=== PATIENT | female | born 1935 | race Caucasian/White ===

== ENCOUNTER 2019-09-02 16:23 | Inpatient (IN) ==
--- OUTSIDE RECORDS SUMMARY | 2019-09-02 16:26 | External Medical Summary | Continuity of Care Document ---
:1935 Author Name Delmy Siddiqui Address Unavailable Unavailable , Care Team Providers Name Role Phone Delmy Siddiqui Unavailable [email or web address] [email or web address], [email or web address] Unavailable Unavailable Problems Active medical history not documented Allergies and Adverse Reactions Allergy history not documented Medications Medications not documented Procedures Procedures not documented Immunizations Immunizations not documented Plan of Treatment Planned Observations Planned Goals not documented Results No Known Results Results not documented
[2019-09-02] MEDS ORDERED: ONDANSETRON INJ 2 MG/ML 2 ML VIAL IV STA ×2 (18:23→21:24)
[2019-09-02] MEDS ORDERED: SODIUM CHLORIDE 0.9% 1000ML 1,000 ML IV ONE ×2 (18:23→21:24)
[2019-09-02] MEDS ORDERED: fentaNYL citrate 100 MCG/2 ML VIAL IV STA (18:31)
--- NOTE | 2019-09-02 18:37 | Emergency Department Note ---
Impression & Plan Small bowel obstruction ED Provider Note Provider: Ammon Minaya MD DATE OF SERVICE: 09/02/2019 CHIEF COMPLAINT: Epigastric pain, vomiting HISTORY OF PRESENT ILLNESS: Patient is a 84-year-old female distant history of small bowel obstruction, prior cholecystectomy, hypertension, presenting today with the onset around 615 this morning of severe epigastric pain with some slight radiation to lower back. States that she has had nausea all day and vomited several times without blood. Denies any chest pain or shortness of breath. Denies any trauma. States she has been constipated for several days but denies any diarrhea. Denies sick contact. States this feels a little bit similar to approximately 50 years ago when she had a bowel obstruction. Pain is fairly severe at this time. Unable to keep much down today. Some tenderness over the epigastrium worsens the pain. REVIEW OF SYSTEMS: A total of 10 review of systems was obtained and negative except as stated above in the HPI. PAST MEDICAL HISTORY: As noted above MEDICATIONS: Reviewed her medication list includes 81 aspirin SOCIAL HISTORY: Patient is a smoker and lives at home PHYSICAL EXAM: GENERAL: alert and oriented laying on her side in her stretcher holding her abdomen Head: normocephalic and atraumatic EYES: No injection, discharge or icterus. ENT: Mucous membranes pink and moist. LUNGS: Airway patent. No retractions. Breath sounds clear HEART: Regular rate and rhythm. No chest wall tenderness ABDOMEN: Soft with some mild to moderate epigastric tenderness. Not peritoneal. No lower abdominal tenderness. BACK: Some slight lumbar paraspinal tenderness. No midline tenderness. SKIN: Acyanotic, warm, dry, without rashes EXTREMITIES: Without swelling, tenderness or deformity NEUROLOGICAL: No focal deficits. No aphasia. No facial droop or slurred speech. EKG: Normal sinus rhythm 87 bpm with sinus arrhythmia. No acute ST segment elevation is notable. QTC 450. No PVC. No PAC. CONTINUOUS CARDIAC MONITORING: was ordered and showed a heart rate of 90 bpm in sinus rhythm with sinus arrhythmia Patient's hypertension was referred to the hospitalist [facility] COURSE: 1824 Patient was first seen and H&P performed. 1941 patient reassessed with some improvement of pain and nausea. Advised of laboratory studies. 2115 updated the patient regarding CT finding small bowel obstruction. General surgery consulted. 2204 discussed with the [facility] hospitalist. Surgery evaluated the patient gustavo mmended conservative measures initially. Patient's laboratory studies and imaging reviewed. Differential includes Appendicitis, infections, diverticulitis, UTI, obstruction, mesenteric ischemia, aortic pathology, inflammatory bowel disease, renal colic, PUD, pancreatitis, biliary pathology, hernia, volvulus, constipation, as well as other pathologies. IMPRESSION/MEDICAL DECISION MAKING: Patient presents with severe abdominal pain and vomiting today. History of obstruction this is of concern. Also pancreatitis and hepatitis of concern. Laboratory studies to be sent. Treated medically some fentanyl and IV fluids and Zofran initially. EKG and troponin were sent to entertain ACS of the lower suspicion. Doubt this represents acute dissection or PE. Troponin is undetectable and EKG without significant changes. No baseline but creatinine of 1.48 is notable. Leukocytosis of 20.8 is notable. Hemoglobin is also elevated question reactive to her history of smoking versus may be a bit dehydrational. Left shift is notable. No evidence of LFT elevation troponin is negative. Lip ase within normal limits. CT scan consistent with small bowel obstruction with concern for to transition point in the pelvis with thickened bowel loops and surrounding inflammation with small volume ascites. No pneumatosis was noted. Discussed with surgery. NG tube ordered. Patient updated. Seen by surgery in the emergency department and conservative treatment overnight. They request a lactate level which was elevated. Additional IV fluids were ordered. Surgery to continue to follow closely and aware of this with medicine to admit. NG tube has put out some several hundred cc's of fluid - nonbloody. DIAGNOSIS: Small bowel obstruction DISPOSITION: Hospitalist will evaluate Patient was agreeable with this plan. Discussed return precautions and advised follow up. Past Med/Surg History Social History Preferred Language: Romanian Feels Safe at Home: Yes Smoking Status: Current every day smoker Allergies Allergies Allergy/AdvReac Type Severity Reaction Status Date / Time No Known Allergies Allergy Verified 09/02/19 18:49 Home Meds Home Medications Medication Instructions Recorded Confirmed aspirin [Aspir-81] 81 mg PO DAILY 09/02/19 09/02/19 cetirizine [Zyrtec] 10 mg PO DAILY 09/02/19 09/02/19 lisinopril 10 mg PO DAILY 09/02/19 09/02/19 multivitamin 1 tab PO DAILY 09/02/19 09/02/19 Results & Data (ED) Vital Signs Vital Signs - 24 hr 09/02/19 16:42 09/02/19 18:55 09/02/19 19:00 Temperature 36.3 C L Temperature Source Oral Pulse Rate 74 92 H 92 H Pulse Rate [Apical] Pulse Rhythm Regular Pulse Rhythm [Apical] Pulse Strength Normal Respiratory Rate 16 22 22 Respiratory Effort / Characteristics Non-Labored Respiratory Depth Normal Respiratory Pattern Regular Blood Pressure 201/96 H Blood Pressure [Right Arm] Blood Pressure Mean 131 Blood Pressure Mean [Right Arm] Blood Pressure Position Sitting Pulse Oximetry 95 Oxygen Delivery Method Room Air Sepsis Recent Fever Within 48 Hours No Sepsis Action Taken by Nursing No Action Required 09/02/19 19:30 09/02/19 20:00 09/02/19 20:47 Temperature Temperature Source Pulse Rate 86 85 100 H Pulse Rate [Apical] 107 H Pulse Rhythm Pulse Rhythm [Apical] Regular Pulse Strength Respiratory Rate 20 24 18 Respiratory Effort / Characteristics Respiratory Depth Respiratory Pattern Blood Pressure 173/79 H Blood Pressure [Right Arm] 173/79 H Blood Pressure Mean 103 Blood Pressure Mean [Right Arm] 110 Blood Pressure Position Pulse Oximetry 97 Oxygen Delivery Method Room Air Sepsis Recent Fever Within 48 Hours Sepsis Action Taken by Nursing 09/02/19 20:48 09/02/19 21:00 09/02/19 21:01 Temperature Temperature Source Pulse Rate 117 H 93 H 93 H Pulse Rate [Apical] Pulse Rhythm Pulse Rhythm [Apical] Pulse Strength Respiratory Rate 15 21 19 Respiratory Effort / Characteristics Respiratory Depth Respiratory Pattern Blood Pressure 189/105 H Blood Pressure [Right Arm] Blood Pressure Mean 133 Blood Pressure Mean [Right Arm] Blood Pressure Position Pulse Oximetry Oxygen Delivery Method Sepsis Recent Fever Within 48 Hours Sepsis Action Taken by Nursing 09/02/19 21:30 09/02/19 21:31 09/02/19 22:00 Temperature Temperature Source Pulse Rate 103 H 102 H 131 H Pulse Rate [Apical] Pulse Rhythm Pulse Rhythm [Apical] Pulse Strength Respiratory Rate 22 22 26 H Respiratory Effort / Characteristics Respiratory Depth Respiratory Pattern Blood Pressure 195/106 H Blood Pressure [Right Arm] Blood Pressure Mean 132 Blood Pressure Mean [Right Arm] Blood Pressure Position Pulse Oximetry Oxygen Delivery Method Sepsis Recent Fever Within 48 Hours Sepsis Action Taken by Nursing 09/02/19 22:01 09/02/19 22:30 09/02/19 22:31 Temperature Temperature Source Pulse Rate 133 H 107 H 112 H Pulse Rate [Apical] Pulse Rhythm Pulse Rhythm [Apical] Pulse Strength Respiratory Rate 22 24 22 Respiratory Effort / Characteristics Respiratory Depth Respiratory Pattern Blood Pressure 142/94 H 170/113 H Blood Pressure [Right Arm] Blood Pressure Mean 101 131 Blood Pressure Mean [Right Arm] Blood Pressure Position Pulse Oximetry Oxygen Delivery Method Sepsis Recent Fever Within 48 Hours Sepsis Action Taken by Nursing 09/02/19 23:00 09/02/19 23:01 Temperature Temperature Source Pulse Rate 92 H 91 H Pulse Rate [Apical] Pulse Rhythm Pulse Rhythm [Apical] Pulse Strength Respiratory Rate 20 20 Respiratory Effort / Characteristics Respiratory Depth Respiratory Pattern Blood Pressure 159/93 H Blood Pressure [Right Arm] Blood Pressure Mean 121 Blood Pressure Mean [Right Arm] Blood Pressure Position Pulse Oximetry Oxygen Delivery Method Sepsis Recent Fever Within 48 Hours Sepsis Action Taken by Nursing Laboratory Data Result diagrams: 09/02/19 18:55 09/02/19 18:55 Lab Results 09/02/19 09/02/19 09/02/19 Range/Units 18:55 18:55 22:36 WBC 20.88 H (4.8-10.8) K/uL RBC 6.33 H (4.2-5.4) M/uL Hgb 19.7 H (12.0-16.0) g/dL Hct 59.5 H (37-47) % MCV 94.0 (80-100) fL MCH 31.1 (25-34) pg MCHC 33.1 (32-36) g/dL RDW Std Deviation 44.8 (36.4-46.3) fL RDW Coeff of Breanna 13.1 (11.5-14.5) % Plt Count 293 (130-400) K/uL MPV 11.2 H (7.4-10.4) fL Immature Gran % (Auto) 0.2 % Neut % (Auto) 86.9 % Lymph % (Auto) 8.7 % Marinette % (Auto) 4.1 % Eos % (Auto) 0.0 % Baso % (Auto) 0.1 % Neut # (Auto) 18.12 H (1.4-6.5) K/uL Lymph # (Auto) 1.82 (1.2-3.4) K/uL Marinette # (Auto) 0.85 H (0.11-0.59) K/uL Eos # (Auto) 0.01 (0-0.5) K/uL Baso # (Auto) 0.03 (0-0.2) K/uL Immature Gran # (Auto) 0.05 H (0.00-0.02) K/uL Sodium 137 (136-145) mmol/L Potassium 3.8 (3.5-5.1) mmol/L Chloride 98 (98-107) mmol/L Carbon Dioxide 26 (21-32) mmol/L Anion Gap 13.0 H (3-11) BUN 20 H (7-18) mg/dl Creatinine 1.48 H (0.6-1.2) mg/dl Est Cr Clr Drug Dosing Not Reportable Est GFR ( Amer) 37.8 Est GFR (Non-Af Amer) 32.6 BUN/Creatinine Ratio 13.4 (10-20) Glucose 265 H (70-99) mg/dl Lactate 4.3 H* (0.4-2.0) mmol/L Calcium 11.8 H (8.5-10.1) mg/dl Total Bilirubin 1.1 H (0.2-1) mg/dl AST 20 (15-37) U/L ALT 27 (12-78) U/L Alkaline Phosphatase 130 H (45-117) U/L Troponin I < 0.015 (0-0.045) ng/ml Total Protein 9.0 H (6.4-8.2) gm/dl Albumin 4.3 (3.4-5.0) gm/dl Globulin 4.7 H (2.5-4.0) gm/dl Albumin/Globulin Ratio 0.9 (0.9-2) Lipase 93 (73-393) U/L Administered Medications Discontinued Medications Fentanyl Citrate (Fentanyl Citrate) 25 mcg IV NOW STA Stop: 09/02/19 18:32 Last Admin: 09/02/19 19:00 Dose: 25 mcg Documented by: [id number] Sodium Chloride (Nss 1000ml) 1,000 mls @ 999 mls/hr IV .Q1H1M ONE Stop: 09/02/19 19:23 Last Infusion: 09/02/19 20:26 Dose: 0 mls/hr Documented by: [id number] Admin: 09/02/19 19:01 Dose: 999 mls/hr Documented by: [id number] Sodium Chloride (Nss 1000ml) 1,000 mls @ 999 mls/hr IV .Q1H1M ONE Stop: 09/02/19 22:24 Last Admin: 09/02/19 21:36 Dose: 999 mls/hr Documented by: [id number] Ondansetron HCl (Zofran) 4 mg IV NOW STA Stop: 09/02/19 18:24 Last Admin: 09/02/19 19:00 Dose: 4 mg Documented by: [id number] Ondansetron HCl (Zofran) 4 mg IV NOW STA Stop: 09/02/19 21:25 Last Admin: 09/02/19 21:36 Dose: 4 mg Documented by: [id number] Discharge Plan Visit Data *Final* Discharge Date/Time: 09/02/19 23:53 Chief Complaint: Abdominal Pain Stated Complaint: ABD PAIN, VOMITING ED Provider: Ammon Minaya Discharge Problem: Small bowel obstruction Patient Disposition: Admitted As Inpatient Discharge Instructions Interventions: ED Discharge Assessment Last Done: 09/02/19 23:53
[2019-09-02 19:07] LABS: Basophils # (auto) 0.03 K/uL (0-0.2); Basophils % (auto) 0.1 %; Eosinophils # (auto) 0.01 K/uL (0-0.5); Hematocrit (blood only) 59.5 % (37-47); Hemoglobin 19.7 g/dL (12.0-16.0); Immature Granulocytes # (auto) 0.05 K/uL (0.00-0.02); Immature Granulocytes % (auto) 0.2 %; Lymphocytes # (auto) 1.82 K/uL (1.2-3.4); Lymphocytes % (auto) 8.7 %; Mean Corpuscular Hemoglobin 31.1 pg (25-34); Mean Platelet Volume 11.2 fL (7.4-10.4); Monocytes # (auto) 0.85 K/uL (0.11-0.59); Monocytes % (auto) 4.1 %; Neutrophils # (auto) 18.12 K/uL (1.4-6.5); Neutrophils % (auto) 86.9 %; Platelet Count 293 K/uL (130-400); RDW Coefficient of Variation 13.1 % (11.5-14.5); RDW Standard Deviation 44.8 fL (36.4-46.3); Red Blood Count 6.33 M/uL (4.2-5.4); White Blood Count 20.88 K/uL (4.8-10.8)
[2019-09-02 19:11] LABS: Mean Corpuscular Hgb Conc 33.1 g/dL (32-36)
[2019-09-02 19:24] LABS: Alanine Aminotransferase 27 U/L (12-78); Albumin Level 4.3 gm/dl (3.4-5.0); Aspartate Aminotransferase 20 U/L (15-37); BUN Creatinine Ratio 13.4 (10-20); Blood Urea Nitrogen 20 mg/dl (7-18); Calcium 11.8 mg/dl (8.5-10.1); Carbon Dioxide 26 mmol/L (21-32); Chloride 98 mmol/L (98-107); Est GFR (African American) 37.8; Est GFR (Non-African American) 32.6; Glucose 265 mg/dl (70-99); Lipase 93 U/L (73-393); Potassium 3.8 mmol/L (3.5-5.1); Sodium 137 mmol/L (136-145)
[2019-09-02 19:29] LABS: Albumin Globulin Ratio 0.9 (0.9-2); Alkaline Phosphatase 130 U/L (45-117); Bilirubin,Total 1.1 mg/dl (0.2-1); Globulin 4.7 gm/dl (2.5-4.0); Troponin I < 0.015 ng/ml (0-0.045)
--- NOTE | 2019-09-02 21:13 | CT Scan Report ---
CT SCAN OF THE ABDOMEN AND PELVIS WITHOUT IV CONTRAST CLINICAL HISTORY: Epigastric abdominal pain. Nausea and vomiting. COMPARISON STUDY: Pelvic ultrasound dated 05/21/2009. TECHNIQUE: CT scan of the abdomen and pelvis is performed from the lung bases to the proximal femora. Images are reviewed in the axial, sagittal, and coronal planes. IV contrast was not administered for this examination as per the referring clinician. Note that the examination was performed in signific antly suboptimal fashion without oral and IV contrast. A dose lowering technique was utilized adherin g to the principles of ALARA. CT DOSE: 693.14 mGy.cm FINDINGS: Lung bases: The heart is normal in size and without pericardial effusion. The lung bases are clear. T here is a moderate hiatal hernia. Liver: The unenhanced liver is cirrhotic in morphology and heterogeneous in attenuation. There is nod ularity of the hepatic surface contour. There is minimal central intrahepatic biliary ductal dilatati on. Gallbladder: Surgically absent noting clips in the gallbladder fossa. Spleen: Normal in size and attenuation. Pancreas: The unenhanced pancreas is moderately atrophic and grossly unremarkable. Adrenal glands: There is nodular thickening of the adrenal glands. Kidneys: The unenhanced kidneys demonstrate cortical atrophy and are without hydronephrosis. There is an 8 mm nonobstructing calculus in the left lower pole. No additional calculi are seen in either kid lizz. There is no evidence of contour deforming renal mass lesion. Abdominal vasculature: The abdominal aorta is normal in course and caliber noting advanced atheroscle rotic calcification. Bowel: The proximal small bowel loops are distended and fluid-filled, measuring up to 3.[address] The distal small bowel loops and colon are decompressed. 2 transition points are suggested in th e pelvis on images #246 and #262. The appearance is consistent with a small bowel obstruction. The 2 transition points raise concern for a closed loop obstruction, possibly related to an internal hernia . There are thick walled bowel loops identified in the pelvis with interloop fluid and surrounding in flammation. There is venous engorgement of the surrounding mesenteric vessels. No pneumatosis intesti nalis or portal venous gas is seen. The appendix is not visualized. Peritoneum: There is trace abdominopelvic ascites. No intraperitoneal free air is seen. A mesenteric calcification is noted in the ventral pelvis on image #296 and measures 2.2 cm. Lymphadenopathy: None. Pelvic viscera: The bladder, uterus, and adnexa are normal as visualized. Skeletal structures: The skeletal structures are osteopenic. Moderate lumbosacral spondylosis is obse rved. No lytic or blastic lesions are seen. IMPRESSION: 1. Significantly suboptimal examination without oral and IV contrast. 2. Findings are consistent with a small bowel obstruction as above. 3. There are 2 transition points suggested in the pelvis, and the appearance is concerning for a clos ed loop type obstruction. There are thick walled bowel loops in the pelvis with surrounding inflammat ion, interloop fluid, and surrounding venous engorgement. These loops are at risk and surgical consul tation is advised. 4. There is a small volume of abdominopelvic ascites. 5. No intraperitoneal free air is identified. There is no pneumatosis intestinalis or portal venous g as. 6. Cirrhotic liver morphology. 7. Left-sided nephrolithiasis. 8. Moderate hiatal hernia. 9. Additional findings as above. ACT 112: Negative or not required by law. Electronically signed by: Dewey Belle M.D. 09/02/2019 9:12 PM
--- NOTE | 2019-09-02 21:21 | XRay Report ---
SINGLE VIEW CHEST CLINICAL HISTORY: Generalized abdominal pain. FINDINGS: An AP, portable, upright chest radiograph is obtained. No prior studies are available for c omparison at the time of dictation. The examination is degraded by portable technique and patient rot ation. The heart is top normal for projection noting atherosclerotic calcification of the thoracic a keren. The pulmonary vasculature is noncongested. Atelectasis is noted at the lung bases. No airspace consolidation or large pleural effusion is identified. No pneumothorax is seen. The skeletal structur es are osteopenic. The bony thorax is grossly intact. IMPRESSION: No active disease in the chest. ACT 112: Negative or not required by law. Electronically signed by: Dewey Belle M.D. 09/02/2019 9:19 PM
--- NOTE | 2019-09-02 22:20 | Surgery Consultation ---
Date of Consultation September 02, 2019 Assessment & Plan (1) Small bowel obstruction: -SBO likely due to adhesions from prior surgery -as the pt, is in no distress will recommend the following: -admit to hospitalist service -keep NPO -hydrate with IVF -NGT to low continuous suction -analgesics and anti-emetics prn -check lactate level -follow serial labs -check KUB in am -I had a lengthy discussion with the patient and her son who was at bedside. I discussed the nature of the problem and that SBO was likely due to adhesions. We discussed a trial of non-surgical treatment as outlined above and they were in agreement. I informed them that if her clinical condition deteriorates or if conservative measures fail after a reasonable timeframe we will need to revisit surgical options. They expressed their understanding and had all questions answered. They noted that her code status is level 1 full code. Supervising Physician Co-Signing Physician Notes Imaging and labs reviewed overnight, discussed with Pk Brown and agree with above. Patient was examined this morning, see today's progress note for full details. History of Present Illness History of Present Illness 84 year old female was in her usual state of health, feeling fine until this am about 6 am she developed diffuse abdominal recinos along with N/V. She drank 3 cups of coffee but continued to have N/V. Sine this morning she has only had sips of water. She notes a hx. of tubal ligation in the 1970s, and subsequently had a SBO due to adhesions that required surgery. She has also had an appendectomy and cholecystectomy. She denies CP, SOB, fevers, shakes, chills. She notes having a BM yesterday and it was not liquid or loose. She had a colonoscopy several years ago with polypectomy. In the ED she had a CT scan that showed concern for SBO(no oral or IV) was used. Her WBC was 20k and her Cr was 1.5. She was noted to be afebrile. An NGT was placed and returned about 300 cc of dark, non-bloody liquid. She was in no distress at the time of my exam. Allergies Allergy/AdvReac Type Severity Reaction Status Date / Time No Known Allergies Allergy Verified 09/02/19 18:49 Home Medications Home Medications Medication Instructions Recorded Confirmed Type aspirin [Aspir-81] 81 mg PO DAILY 09/02/19 09/02/19 History cetirizine [Zyrtec] 10 mg PO DAILY 09/02/19 09/02/19 History lisinopril 10 mg PO DAILY 09/02/19 09/02/19 History multivitamin 1 tab PO DAILY 09/02/19 09/02/19 History Patient History Social History Preferred Language: Divehi Communication Ability: Effective Underground Utility Locator Required: No Beliefs That Will Affect Care: None Current Living Situation: Family Current Living Situation Comment: Home with Son Other Information That Helps Us Care for You: No Feels Safe at Home: Yes Safety Concerns: Feels Safe At This Time Smoking Status: Current every day smoker Tobacco Type: cigarettes ; Cigarettes Per Day: 20 ; Hx Alcohol Use: No Hx Substance Use: No Review of Systems Constitutional: + weight loss; no fever and no chills Eyes: no diplopia Ear, Nose, Mouth, Throat: no ear pain Respiratory: no cough and no dyspnea Cardiovascular: no chest pain Gastrointestinal: + abdominal pain, + nausea and + vomiting Genitourinary: no dysuria Musculoskeletal: no back pain Integumentary: no rash Neurologic: no localized weakness Physical Exam Constitutional: well developed and well nourished; no acute distress Eyes: no conjunctival abnormality ENMT: Ears: no hearing impairment oral mucosa dry Neck: trachea midline Respiratory: normal respiratory effort, lungs clear to auscultation Cardiovascular: Rate/Rhythm: regular rate and regular rhythm Vessels: dorsalis pedis pulses present and radial pulses present Gastrointestinal (Abdomen): BS are hypoactive; abdomen has minimal distention; no rebound tenderness; generalized tenderness to palpation noted. She has a well healed midline incision. No hernias or defects noted. Musculoskeletal: no calf pain Skin: no rashes, warm and dry Neurologic: moves all extremities Results & Data Vital Signs (Past 12 Hours) Vital Signs Temp Pulse Pulse Resp BP BP Pulse Ox 09/02/19 21:31 102 H 22 09/02/19 21:30 103 H 22 195/106 H 09/02/19 21:01 93 H 19 09/02/19 21:00 93 H 21 189/105 H 09/02/19 20:48 117 H 15 09/02/19 20:47 100 H 107 H 18 173/79 H 173/79 H 97 09/02/19 20:00 85 24 09/02/19 19:30 86 20 09/02/19 19:00 92 H 22 09/02/19 18:55 92 H 22 09/02/19 16:42 36.3 C L 74 16 201/96 H 95 PG Care Time/CCT Total # of Minutes Spent Total Time Spent with Patient: Total time spent is greater than 50% in coordination of care (as documented) at patient's floor/unit and/or counseling patient: Coding Level of Care Code 88531 Inpt Consult Level 5 Diagnoses Small bowel obstruction K56.609
[2019-09-02] MEDS ORDERED: MoRPHine SULFATE 2 MG/ML CARP IV PRN (22:27)
[2019-09-02] MEDS ORDERED: SODIUM CHLORIDE 0.9% 1000ML 1,000 ML IV SCH (22:30)
[2019-09-02] MEDS ORDERED: SODIUM CHLORIDE 0.9% 500 ML IV SCH (23:30)
[2019-09-03] MEDS ORDERED: ONDANSETRON INJ 2 MG/ML 2 ML VIAL IV PRN (00:32)
--- NOTE | 2019-09-03 00:39 | History and Physical Report ---
DATE OF ADMISSION: 09/02/2019 CHIEF COMPLAINT: Abdominal pain. HISTORY OF PRESENT ILLNESS: This is an 84-year-old female with past medical history significant for prediabetes, hypertension, history of small-bowel obstruction 50 years ago, who comes with abdominal pain that started today morning and progressively the pain got severe, about 10/10 in severity. Later in the afternoon, she started to have nausea and vomiting and vomited like 4-5 times. In the ER, again she vomited. Last bowel movement was yesterday which was constipated. Denies any fever, chills. No cough, no shortness of breath, no chest pain, no loss of sense of smell or taste. No headache, no blurred vision, no earache, no runny nose, no dysphagia. Normal bladder movements. Currently, she has an NG tube and she is feeling a little better. ALLERGIES: No known drug allergies. PAST MEDICAL HISTORY: As mentioned above. PAST SURGICAL HISTORY: Colonoscopy, hemorrhoidectomy, laparoscopic cholecystectomy, ligation of oviducts, tonsillectomy and adenoidectomy. MEDICATIONS: The patient is on lisinopril 10 mg p.o. daily, aspirin 81 mg p.o. daily, multivitamins with minerals 1 tablet daily. FAMILY HISTORY: No family history on file. SOCIAL HISTORY: , lives with her son. Smokes 1 pack a day. No alcohol use, no drug use. REVIEW OF SYSTEMS: As per HPI. Rest of the review of systems negative. PHYSICAL EXAMINATION: GENERAL: The patient is of moderate build, not in acute distress. VITAL SIGNS: Temperature 36.3, pulse 110, respiratory rate 22, blood pressure is 170/113, and oxygen 97% on room air. HEENT: No pallor, no icterus. Pupils equal, round, and reactive to light. NECK: No JVD, no neck masses, no carotid bruits. CARDIOVASCULAR: S1, S2 heard, regular rate and rhythm, no murmur, no gallop. RESPIRATORY SYSTEM: Normal AP diameter. No accessory muscle use. No wheezing, no crackles. ABDOMEN: Soft, bowel sounds sluggish. Diffuse mild discomfort. No guarding, no rigidity, no distention. CENTRAL NERVOUS SYSTEM: Cranial nerves II-XII grossly intact. Nonfocal. EXTREMITIES: Some petechial rash seen in the lower extremities. No edema seen. LABORATORY DATA: WBC 20.8, hemoglobin 19.7, hematocrit 59.5, platelets 293. Sodium 137, potassium 3.8, chloride 98, bicarbonate 26, BUN 20, creatinine 1.4, serum glucose 265. Lactic acid 11.8, total bilirubin 1.1, AST 20, ALT 27, alkaline phosphatase 130. Troponin I less than 0.015. Lipase 93. IMAGING: Chest x-ray, no active disease in the chest. CT of the abdomen and pelvis preliminary report consistent with small-bowel obstruction. EKG: Normal sinus rhythm with sinus arrhythmia at rate of 87, no significant change was seen. ASSESSMENT AND PLAN: This is an 84-year-old female who presents with small-bowel obstruction. 1. Small-bowel obstruction, history of obstruction in the past 50 years ago. Seen by surgery, status post NG tube. Continue with NG tube, n.p.o., IV fluids, IV antiemetics, IV pain medicine p.r.n. Monitor in the medical floor. 2. Petechial rash in lower extremities, which started about a week ago, needs to follow up. 3. Hyperglycemia, history of prediabetes. We will place on insulin sliding scale. Follow the blood sugars, follow HbA1c levels. 4. Hypercalcemia , mostly likely from dehydration.Follow repeat levels. 5. Elevated lactic acid, mostly from dehydration. We will give aggressive fluids and follow the repeat levels. 6. Acute kidney injury. Baseline creatinine of 0.9, presently with a creatinine of 1.4. Getting fluids. We will follow the repeat labs. 7. Deep venous thrombosis prophylaxis, sequential compression devices. 8. Hypertension, holding the lisinopril. As Cr improving placed on iv Vasotec prn. DISPOSITION: Admit to medical floor. Expect to discharge home and follow with family doctor. Level 1 full code. MTDD
[2019-09-03] MEDS ORDERED: CARBOHYDRATES FOR HYPOGLYCEMIA PO PRN (00:45)
[2019-09-03] MEDS ORDERED: GLUCAGON FOR INJ 1 MG VIAL IM PRN (00:45)
[2019-09-03] MEDS ORDERED: DEXTROSE 50% 50 ML SYRINGE IV PRN (00:45)
[2019-09-03] MEDS ORDERED: GLUCOSE 10 TABS/TUBE PO PRN (00:45)
[2019-09-03] MEDS ORDERED: GLUCOSE 40% GEL 15 GM TUBE PO PRN (00:45)
[2019-09-03] MEDS: INSULIN ASPART 100 UNITS/ML 3 ML PEN SC SCH ×4 (01:02→19:39)
[2019-09-03] MEDS: SODIUM CHLORIDE 0.9% 1000ML 1,000 ML IV SCH ×2 (01:16→10:46)
[2019-09-03 03:20] LABS: Basophils # (auto) 0.01 K/uL (0-0.2); Hematocrit (blood only) 52.9 % (37-47); Hemoglobin 18.1 g/dL (12.0-16.0); Immature Granulocytes # (auto) 0.08 K/uL (0.00-0.02); Immature Granulocytes % (auto) 0.4 %; Lymphocytes # (auto) 1.27 K/uL (1.2-3.4); Lymphocytes % (auto) 6.1 %; Mean Corpuscular Hemoglobin 31.5 pg (25-34); Mean Corpuscular Hgb Conc 34.2 g/dL (32-36); Mean Platelet Volume 10.9 fL (7.4-10.4); Monocytes % (auto) 3.8 %; Neutrophils # (auto) 18.64 K/uL (1.4-6.5); Neutrophils % (auto) 89.7 %; Nucleated RBC # (auto) 0.04 K/uL (0-0); Nucleated RBC % (auto) 0.2 %; Platelet Count 228 K/uL (130-400); RDW Coefficient of Variation 13.2 % (11.5-14.5); RDW Standard Deviation 44.3 fL (36.4-46.3); Red Blood Count 5.75 M/uL (4.2-5.4)
[2019-09-03 03:42] LABS: BUN Creatinine Ratio 19.4 (10-20); Calcium 9.8 mg/dl (8.5-10.1); Creatinine Clr Calc Pharmacy 37.5 ml/min; Est GFR (African American) 47.8; Est GFR (Non-African American) 41.2; Magnesium 2.2 mg/dl (1.8-2.4); Potassium 4.6 mmol/L (3.5-5.1)
[2019-09-03 06:11] LABS: Basophils # (auto) 0.01 K/uL (0-0.2); Hematocrit (blood only) 53.3 % (37-47); Hemoglobin 17.7 g/dL (12.0-16.0); Immature Granulocytes # (auto) 0.06 K/uL (0.00-0.02); Immature Granulocytes % (auto) 0.3 %; Lymphocytes % (auto) 5.5 %; Mean Corpuscular Hemoglobin 30.7 pg (25-34); Mean Corpuscular Volume 92.4 fL (80-100); Mean Platelet Volume 10.9 fL (7.4-10.4); Monocytes # (auto) 0.96 K/uL (0.11-0.59); Monocytes % (auto) 4.8 %; Neutrophils # (auto) 17.94 K/uL (1.4-6.5); Neutrophils % (auto) 89.4 %; Platelet Count 264 K/uL (130-400); RDW Coefficient of Variation 13.3 % (11.5-14.5); RDW Standard Deviation 44.5 fL (36.4-46.3); Red Blood Count 5.77 M/uL (4.2-5.4); White Blood Count 20.07 K/uL (4.8-10.8)
[2019-09-03 06:17] LABS: Mean Corpuscular Hgb Conc 33.2 g/dL (32-36)
[2019-09-03] MEDS ORDERED: SODIUM CHLORIDE 0.9% 500 ML IV SCH (06:30)
[2019-09-03] MEDS ORDERED: ENALAPRILAT 1.25 MG in DEXTROSE 5% 25 ML IV PRN (06:38)
[2019-09-03 06:47] LABS: BUN Creatinine Ratio 20.4 (10-20); Calcium 10.2 mg/dl (8.5-10.1); Creatinine Clr Calc Pharmacy 36.4 ml/min; Est GFR (African American) 45.9; Est GFR (Non-African American) 39.6; Potassium 4.5 mmol/L (3.5-5.1)
[2019-09-03 06:54] LABS: Appearance Urine Turbid (Clear); Bacteria Urine Automated Negative (Negative); Blood Urine Negative (Negative); Color Urine Dark Yellow; Epithelial Cell Urine Auto >30 /lpf (0-5); Glucose Urine UA Negative (Negative); Ketones Urine Trace (Negative); Leukocyte Esterase Urine Trace (Negative); Nitrite Urine Negative (Negative); Protein Urine 2+ (Negative); Specific Gravity Urine 1.028 (1.000-1.030); Urobilinogen Urine Negative (Negative)
[2019-09-03 06:59] LABS: Estimated Average Glucose 114 mg/dl; Hemoglobin A1C 5.6 % (4.5-5.6)
[2019-09-03 07:09] LABS: Bilirubin Urine Negative (Negative); Ictotest Urine Negative (Negative)
[2019-09-03 07:11] LABS: Calcium Oxalate Crystals Urine Present (None Prsent)
[2019-09-03 07:13] LABS: Cast Urine Automated >30 /lpf (0-5)
[2019-09-03 07:14] LABS: Mucus Urine Present (None Prsent)
[2019-09-03] MEDS ORDERED: HydrALAZINE HCL 20 MG/ML VIAL IV PRN (07:48)
--- NOTE | 2019-09-03 08:06 | Electrocardiogram Report ---
Test Reason : Blood Pressure : / mmHG Vent. Rate : 087 BPM Atrial Rate : 087 BPM P-R Int : 124 ms QRS Dur : 086 ms QT Int : 374 ms P-R-T Axes : 016 046 038 degrees QTc Int : 450 ms Normal sinus rhythm with sinus arrhythmia Left atrial enlargement Poor R wave progression, consider anterior NC vs. lead placement vs. LVH Abnormal ECG When compared with ECG of 02-JAN-2015 23:28, No significant change was found Confirmed by Liu Gibson ([id number]) on 09/03/2019 8:05:45 AM Referred By: REFERRED SELF Confirmed By:Liu Gibson
[2019-09-03 08:08] LABS: Phosphorus 4.6 mg/dl (2.5-4.9); Thyroid Stimulating Hormone 0.71 uIu/ml (0.300-4.500)
--- NOTE | 2019-09-03 08:14 | XRay Report ---
XR KUB/Abdomen 1 view CLINICAL HISTORY: SBO pain COMPARISON STUDY: 09/02/2019 FINDINGS: Several air-filled loops of small bowel left abdomen. No significant colonic distention. Lower pole left-sided nephrocalcinosis. Nasogastric tube within the mid stomach. IMPRESSION: 1. Lower pole left renal nephrocalcinosis. 2. Mild nonobstructive ileus. ACT 112: Negative or not required by law. The above report was generated using voice recognition software. It may contain grammatical, syntax or spelling errors. Electronically signed by: Luís Pritchard M.D. 09/03/2019 8:12 AM
--- NOTE | 2019-09-03 08:58 | Surgery Progress Note ---
Date of Service September 03, 2019 Assessment & Plan (1) Small bowel obstruction: Patient here with small bowel obstruction WBC 20, same as yesterday Lactate normalized, 1.2 KUB this AM shows nonobstructive ileus Clinically feeling better since admission, but still with some lower abdominal discomfort Recommend continuing conservative management with NGT and bowel rest while awaiting return of bowel function No plans for surgical intervention at this time Pt seen and examined with Dr. Gomez Supervising Physician Co-Signing Physician Notes Patient seen and examined on morning rounds, labs and imaging reviewed, agree with above. 84-year-old female with prior surgical history presented with sudden onset of mid abdominal pain with nausea and vomiting. She has a history of a bowel obstruction status post lysis of adhesions in the 1970s. She came to the emergency department yesterday evening and a CT scan without oral or IV contrast noted small bowel obstruction with 2 possible transitions points, that could be interpreted as a possible closed-loop obstruction or internal hernia. She did have an elevated white blood cell count but also appeared to be in a prerenal azotemia with an elevated hematocrit and hemoglobin as well as an elevated creatinine. Her lactate was initially 4 but down trended to 1.2 overnight. I discussed the case with Pk hogue PA who examined the patient, and based on her abdominal exam and findings, we agreed for conservative management. This morning she is feeling better. She did have an NG tube placed overnight and it is irritating the back of her throat. Her a bdominal pain has improved but there is still some lower abdominal achiness. She has not passed gas or had a bowel movement yet. She did have a KUB this morning which showed an ileus with some gas in the colon. On exam she is afebrile with a mild tachycardia but stable vitals. Her abdomen is soft, moderately distended, minimally tender to palpation with no guarding or rebound. KUB was reviewed as above. Labs show persistent leukocytosis of 20, downtrending creatinine, and normal lactate. At this point patient appears to have a small bowel obstruction, and I have a low concern for a closed-loop obstruction Continue with conservative management, NG tube to low intermittent wall suction, may clamp to ambulate Repeat KUB and labs in the morning Surgery will continue to follow Subjective Pt states her pain is overall improved. Does have some ongoing "soreness" across mid and lower abdomen. Had a bout of emesis earlier this AM, but denies nausea currently. No gas or BM yet. Physical Exam Physical Exam: awake/alert Gastrointestinal (Abdomen): Inspection/Auscultation: + abdominal surgical scar Percussion/Palpation: + abdomen tender (mild ttp across lower abodmen) and abdomen soft NGT with brown output Results & Data Vital Signs (Past 12 Hours) Vital Signs Temp Pulse Pulse Resp BP BP BP 09/03/19 07:39 36.8 C 103 H 20 134/72 09/03/19 01:28 174/83 H 09/03/19 01:17 105 H 149/86 H 09/03/19 00:33 36.5 C 15 09/02/19 23:31 88 22 09/02/19 23:30 86 24 162/74 H 09/02/19 23:01 91 H 20 09/02/19 23:00 92 H 20 159/93 H 09/02/19 22:31 112 H 22 09/02/19 22:30 107 H 24 170/113 H 09/02/19 22:01 133 H 22 142/94 H 09/02/19 22:00 131 H 26 H 09/02/19 21:31 102 H 22 09/02/19 21:30 103 H 22 195/106 H 09/02/19 21:01 93 H 19 09/02/19 21:00 93 H 21 189/105 H Pulse Ox 09/03/19 07:39 93 09/03/19 01:28 09/03/19 01:17 09/03/19 00:33 91 09/02/19 23:31 09/02/19 23:30 09/02/19 23:01 09/02/19 23:00 09/02/19 22:31 09/02/19 22:30 09/02/19 22:01 09/02/19 22:00 09/02/19 21:31 09/02/19 21:30 09/02/19 21:01 09/02/19 21:00 PG Care Time/CCT Total # of Minutes Spent Total Time Spent with Patient: Total time spent is greater than 50% in coordination of care (as documented) at patient's floor/unit and/or counseling patient: Coding Level of Care Code 52948 Subseq Hosp Care Lvl 1 Diagnoses Small bowel obstruction K56.609
[2019-09-03] MEDS: D5W AND 1/2NSS 1,000 ML IV SCH (11:22)
--- NOTE | 2019-09-03 11:38 | Hospitalist Progress Note ---
Date of Service September 03, 2019 Assessment & Plan (1) Small bowel obstruction: This is an 84-year-old female who presents with small-bowel obstruction. -continue NG tube suctioning -on IV fluids -prn pain medications and antiemetics -general surgery following the patient Leukocytosis -admission WBC of 20,000 unchanged Elevated Lactic acid, on admission -resolved with IV fluids Hypercalcemia possible hyperparathyroidism -could be from dehydration -but elevated PTH with normal vitamin D suggest Hyperparathyroidism -the serum calcium levels so far mildly elevated above reference range of normal, continue to monitor -normal TSH Acute kidney injury -Baseline creatinine of 0.9, but admitted with a creatinine of 1.4. -monitor creatinine while on IV fluids Hypertension -blood pressure controlled while off GARCÍA inhibitor for now Hyperglycemia on admission Prediabetes -admission glucose 265, has downtrended -HbA1c 5.6 -sliding scale insulin as needed especially while on D5 1/2 normal fluids for hydration and calories while NPO with NG tube Petechial rash in lower extremities -which started about a week ago, monitor, no pruritus Deep venous thrombosis prophylaxis, sequential compression devices. Admission and Anticipated Discharge Date Admission Date: September 02, 2019 Subjective has NG tube draining bilious fluid. patient reports abdomen pain getting better. no chest pain. no shortness of breath. on room air. no chest pain. no palpitations. no dizziness. no headache Review of Systems Review of Systems: All systems reviewed & are unremarkable except as noted in Subjective Physical Exam Constitutional: cooperative Eyes: PERRL, conjunctivae normal, anicteric sclerae EOM intact bilaterally ENMT: has NG tube draining bilious fluid Neck: trachea midline, no thyromegaly Respiratory: normal respiratory effort, lungs clear to auscultation Cardiovascular: Rate/Rhythm: regular rate Gastrointestinal (Abdomen): Percussion/Palpation: abdomen soft Musculoskeletal: Head/Neck/Chest: normocephalic and head atraumatic Neurologic: PERRL, EOMI, accommodation nl, no face palsy, no dysarthria CN's II-XI intact bilaterally Psychiatric: A+Ox3, euthymic affect Results & Data Results & Data ([facility]) Vital Signs (Past 12 Hours) Vital Signs Temp Pulse Resp BP BP Pulse Ox 09/03/19 07:39 36.8 C 103 H 20 134/72 93 09/03/19 01:28 174/83 H 09/03/19 01:17 105 H 149/86 H 09/03/19 00:33 36.5 C 15 91
[2019-09-03] MEDS ORDERED: SODIUM CHLORIDE 0.9% 1000ML 250 ML IV ONE (14:41)
[2019-09-04] MEDS: INSULIN ASPART 100 UNITS/ML 3 ML PEN SC SCH ×5 (00:36→18:38)
[2019-09-04] MEDS: D5W AND 1/2NSS 1,000 ML IV SCH (02:38)
[2019-09-04 06:10] LABS: Basophils # (auto) 0.02 K/uL (0-0.2); Basophils % (auto) 0.1 %; Eosinophils # (auto) 0.01 K/uL (0-0.5); Hematocrit (blood only) 50.1 % (37-47); Hemoglobin 16.2 g/dL (12.0-16.0); Immature Granulocytes # (auto) 0.06 K/uL (0.00-0.02); Immature Granulocytes % (auto) 0.3 %; Lymphocytes # (auto) 1.89 K/uL (1.2-3.4); Lymphocytes % (auto) 9.2 %; Mean Corpuscular Hemoglobin 30.7 pg (25-34); Mean Corpuscular Hgb Conc 32.3 g/dL (32-36); Mean Corpuscular Volume 94.9 fL (80-100); Mean Platelet Volume 11.5 fL (7.4-10.4); Monocytes % (auto) 8.8 %; Neutrophils # (auto) 16.72 K/uL (1.4-6.5); Neutrophils % (auto) 81.6 %; Platelet Count 233 K/uL (130-400); RDW Coefficient of Variation 13.7 % (11.5-14.5); RDW Standard Deviation 47.3 fL (36.4-46.3); Red Blood Count 5.28 M/uL (4.2-5.4)
[2019-09-04 06:46] LABS: Albumin Globulin Ratio 0.9 (0.9-2); Albumin Level 2.9 gm/dl (3.4-5.0); Calcium 10.1 mg/dl (8.5-10.1); Creatinine Clr Calc Pharmacy 36.9 ml/min; Est GFR (African American) 46.8; Est GFR (Non-African American) 40.4; Globulin 3.3 gm/dl (2.5-4.0); Potassium 3.5 mmol/L (3.5-5.1); Total Protein 6.2 gm/dl (6.4-8.2)
[2019-09-04 06:53] LABS: Bilirubin,Total 1.4 mg/dl (0.2-1)
[2019-09-04 07:37] LABS: Base Excess ABG 19.2 mEq/L (-9-1.8); HCO3 ABG 47 mmol/L (19-24); Oxygen Saturation ABG 95.7 % (90-95); PCO2 ABG 63 mmHg (35-46); PO2 ABG 77 mmHg (80-95); pH ABG 7.49 (7.35-7.45)
[2019-09-04 07:43] LABS: Allen Test Pos (Pos)
--- NOTE | 2019-09-04 08:10 | XRay Report ---
KUB CLINICAL HISTORY: Small bowel obstruction. FINDINGS: An AP, portable, supine abdominal radiograph is compared to study dated 09/03/2019 and corre lated with abdominal CT dated 09/02/2019. An enteric tube is unchanged in position and projects over t he stomach. Cholecystectomy clips are noted. There is evidence of persistent small bowel obstruction. Small bowel loops measure up to 5.3 cm. No evidence of intraperitoneal free air is seen on this supi ne image. A mesenteric calcification is again noted in the pelvis. The skeletal structures are osteop enic and appear intact. IMPRESSION: Persistent small bowel obstruction. Gaseous distention appears modestly increased from . Electronically signed by: Dewey Belle M.D. 09/04/2019 8:08 AM
--- NOTE | 2019-09-04 09:18 | Surgery Progress Note ---
Date of Service September 04, 2019 Assessment & Plan (1) Small bowel obstruction: not improving WBC remains 20, XR with persistent SB dilation and high NG output discussed options of continued observation, obtaining SBFT, or surgery for laparoscopy/laparotomy given her continued symptoms and lack of progress, she wishes to proceed to OR and we will plan for this afternoon Supervising Physician Co-Signing Physician Notes Patient seen and examined, labs and imaging reviewed, agree with above. 84-year-old female with prior abdominal surgery presented with small bowel obstruction and some concern for closed-loop obstruction. She did well yesterday, but persist with some abdominal cramping. She has high NG tube output. She has not passed any flatus. On exam she is distended and mildly tender to palpation without guarding or rebound. WBC still 20 K, KUB with persistent small bowel obstruction. We discussed her options to include continued observation, small bowel follow-through, or surgery. At this point we agreed that surgery was the best course of action. Plan for diagnostic laparoscopy, possible laparotomy, possible bowel resection later today The risk of the procedure were discussed to include but not limited to bleeding, infection, recurrence, ostomy, damage surrounding structures, need for future more extensive surgery, prolonged ileus, and the risk of anesthesia Preop antibiotics Patient may need TPN postoperatively The diagnosis, details the procedure and recovery, and plan of care discussed with the patient, all questions were answered, the patient expressed understanding agrees the plan of care as stated Subjective no flatus, pain about the same Physical Exam Gastrointestinal (Abdomen): Inspection/Auscultation: + abdomen distended Percussion/Palpation: + abdomen tender (mild) and abdomen soft NG 900 cc per shift Results & Data Vital Signs (Past 12 Hours) Vital Signs Temp Pulse Resp BP BP Pulse Ox 09/04/19 07:34 36.4 C L 78 17 120/77 94 09/04/19 00:01 91 09/03/19 23:23 36.9 C 91 H 16 128/74 84 L PG Care Time/CCT Total # of Minutes Spent Total Time Spent with Patient: Total time spent is greater than 50% in coordination of care (as documented) at patient's floor/unit and/or counseling patient: Coding Level of Care Code 98028 Inpt Consult Level 1 Diagnoses Small bowel obstruction K56.609
--- NOTE | 2019-09-04 09:52 | Hospitalist Progress Note ---
Date of Service delayed entry September 04, 2019 Assessment & Plan (1) Small bowel obstruction: SBO likely due to peritoneal adhesions This is an 84-year-old female who presents with small-bowel obstruction. -General surgery is to proceed with exploratory laparotomy today Preoperative evaluation: Patient moderate risk for cardiopulmonary complications, no contraindication to proceed with planned surgery Leukocytosis -Afebrile -admission WBC of 20,000 unchanged -Urine cultures negative so far Elevated Lactic acid, on admission -resolved with IV fluids Hypercalcemia possible hyperparathyroidism -could be from dehydration -but elevated PTH with normal vitamin D suggest Hyperparathyroidism -normal TSH --Improving Acute kidney injury -Baseline creatinine of 0.9, but admitted with a creatinine of 1.4. -Improved to 1.2 Hypertension -blood pressure controlled while off GARCÍA inhibitor -Monitor BP Hyperglycemia on admission Prediabetes -admission glucose 265, has downtrended -HbA1c 5.6 -sliding scale insulin as needed Petechial rash in lower extremities -which started about a week ago -No rash noted Deep venous thrombosis prophylaxis, sequential compression devices. Admission and Anticipated Discharge Date Admission Date: September 02, 2019 Subjective Follow-up for small bowel obstruction Seen resting in bed, comfortable, not in distress Still reports mild abdominal discomfort, and nausea No chest pain, shortness of breath, palpitations, dizziness States she can walk up to 5 steps at home with no problems Also can do grocery shopping with no unusual shortness of breath or chest pain No other symptoms Review of Systems Review of Systems: All systems reviewed & are unremarkable except as noted in HPI & below Physical Exam Physical Exam: General- oriented x 3, not in distress, speaks in sentences with no effort or accessory muscle use Head- atraumatic Eyes- PERRL, EOMI, anicteric ENT- oropharynx clear NG tube in place with brown output Neck- supple, no JVD, no adenopathy, no thyromegaly; carotids +2/2, no bruits appreciated Lungs- clear to auscultation bilaterally, no rales/wheezes Heart- normal rate, regular rhythm; no murmur, no gallop, no rub appreciated Abdomen-hypoactive bowel sounds, nondistended, soft, nontender, no masses or hepatosplenomegaly Extremities- no pretibial edema, no calf tenderness; peripheral pulses intact Neuro- alert, oriented x 3; CN 2-12 grossly intact; motor 5/5 bilaterally;sensation 100% on all extremities; no other gross focal neurologic deficits Skin- warm & dry Results & Data Results & Data ([facility]) Vital Signs (Past 12 Hours) Vital Signs Temp Pulse Resp BP BP Pulse Ox 09/04/19 07:34 36.4 C L 78 17 120/77 94 09/04/19 00:01 91 09/03/19 23:23 36.9 C 91 H 16 128/74 84 L Laboratory Results All noted and reviewed
--- NOTE | 2019-09-04 10:33 | XRay Report ---
XR chest 1V portable CLINICAL HISTORY: Hypoxia. COMPARISON STUDY: Chest radiograph September 02, 2019. FINDINGS: Tip of nasogastric tube is below the lower aspect of this image but at least within the pro ximal stomach. There is no pneumothorax. Trace left pleural effusion is noted. There are mild bibasil ar opacities. These favor atelectasis. IMPRESSION: 1. Mild bibasilar opacities that favor atelectasis. 2. Trace left pleural effusion. ACT 112: Negative or not required by law. Electronically signed by: Ten Wilkerson M.D. 09/04/2019 10:31 AM
--- NOTE | 2019-09-04 13:22 | Anesthesiology Consultation ---
Date of Service September 04, 2019 History Surgery Operation Date: 09/04/19 08:20 Proposed Procedures p Diagnostic Laparoscopy, Possible Laparotomy with Bowel Resection - Denver Gomez, , FACS Height/Weight Height: 5 ft 6 in Weight: 78.3 kg Allergies Allergy/AdvReac Type Severity Reaction Status Date / Time No Known Allergies Allergy Verified 09/02/19 18:49 Medications Home Medications Medication Instructions Recorded Confirmed Last Taken aspirin [Aspir-81] 81 mg PO DAILY 09/02/19 09/02/19 09/02/19 cetirizine [Zyrtec] 10 mg PO DAILY 09/02/19 09/02/19 09/02/19 lisinopril 10 mg PO DAILY 09/02/19 09/02/19 09/02/19 multivitamin 1 tab PO DAILY 09/02/19 09/02/19 09/02/19 Active Medications Generic Name Dose Route Start Last Admin Trade Name Freq PRN Reason Stop Dose Admin Dextrose/Sodium Chloride 1,000 mls @ 60 mls/hr 09/03/19 11:00 09/04/19 02:38 D5w And 1/2nss IV 10/03/19 10:59 60 mls/hr .[id number] YISEL Administration Insulin Aspart 0 units 09/03/19 00:45 09/04/19 13:01 Novolog Flexpen SC 10/03/19 00:44 Not Given Q6 YISEL Ondansetron HCl 4 mg 09/03/19 00:32 09/03/19 13:02 Zofran IV 10/03/19 00:31 4 mg Q6H PRN Administration Nausea NPO Date Last Intake of Fluids: 09/04/19 Time Last Intake of Fluids: 12:00 Date Last Intake of Solids: 09/01/19 Social History Smoking Status: Current every day smoker tobacco type: cigarettes Smoking cigarettes per day: 20 Hx Alcohol Use: No Hx Substance Use: No Physical Exam Vital Signs Last Vital Signs Temp 36.7 C 09/04/19 13:01 Pulse 89 09/04/19 13:01 Resp 18 09/04/19 13:01 BP 104/86 09/04/19 13:01 Pulse Ox 98 09/04/19 13:01 Testing Laboratory Results 09/04/19 05:03 09/04/19 05:03 Hemoglobin A1c 5.6 % (4.5-5.6) 09/03/19 03:07 Urine Color Dark Yellow 09/03/19 06:20 Urine Appearance Turbid (Clear) A 09/03/19 06:20 Urine pH 5.0 (4.5-7.5) 09/03/19 06:20 Ur Specific [place] 1.028 (1.000-1.030) 09/03/19 06:20 Urine Protein 2+ (Negative) H 09/03/19 06:20 Urine Glucose (UA) Negative (Negative) 09/03/19 06:20 Urine Ketones Trace (Negative) H 09/03/19 06:20 Urine Nitrite Negative (Negative) 09/03/19 06:20 Ur Leukocyte Esterase Trace (Negative) H 09/03/19 06:20 Urine WBC (Auto) 10-30 /hpf (0-5) H 09/03/19 06:20 Urine RBC (Auto) 5-10 /hpf (0-4) H 09/03/19 06:20 U Hyaline Cast (Auto) >30 /lpf (0-5) H 09/03/19 06:20 U Epithel Cells (Auto) >30 /lpf (0-5) H 09/03/19 06:20 Urine Bacteria (Auto) Negative (Negative) 09/03/19 06:20 09/04/19 09/04/19 12:09 05:46 POC Glucose 122 H 126 H
--- NOTE | 2019-09-04 13:24 | Anesthesiology Consultation ---
Date of Service September 04, 2019 Assessment & Plan (1) Small bowel obstruction: (2) Bleeding hemorrhoids: (3) Hyperglycemia: (4) Hypokalemia: History Surgery Operation Date: 09/04/19 08:20 Proposed Procedures p Diagnostic Laparoscopy, Possible Laparotomy with Bowel Resection - Denver Gomez DO, FACS Height/Weight Height: 5 ft 6 in Weight: 78.3 kg Allergies Allergy/AdvReac Type Severity Reaction Status Date / Time No Known Allergies Allergy Verified 09/02/19 18:49 Medications Home Medications Medication Instructions Recorded Confirmed Last Taken aspirin [Aspir-81] 81 mg PO DAILY 09/02/19 09/02/19 09/02/19 cetirizine [Zyrtec] 10 mg PO DAILY 09/02/19 09/02/19 09/02/19 lisinopril 10 mg PO DAILY 09/02/19 09/02/19 09/02/19 multivitamin 1 tab PO DAILY 09/02/19 09/02/19 09/02/19 Active Medications Generic Name Dose Route Start Last Admin Trade Name Freq PRN Reason Stop Dose Admin Dextrose/Sodium Chloride 1,000 mls @ 60 mls/hr 09/03/19 11:00 09/04/19 02:38 D5w And 1/2nss IV 10/03/19 10:59 60 mls/hr .[id number] YISEL Administration Insulin Aspart 0 units 09/03/19 00:45 09/04/19 13:01 Novolog Flexpen SC 10/03/19 00:44 Not Given Q6 YISEL Ondansetron HCl 4 mg 09/03/19 00:32 09/03/19 13:02 Zofran IV 10/03/19 00:31 4 mg Q6H PRN Administration Nausea NPO Date Last Intake of Fluids: 09/04/19 Time Last Intake of Fluids: 12:00 Date Last Intake of Solids: 09/01/19 Past Medical History Medical History (Updated 09/04/19 @ 13:24 by Prisca Simon MD) Bleeding hemorrhoids Social History Smoking Status: Current every day smoker tobacco type: cigarettes Smoking cigarettes per day: 20 Hx Alcohol Use: No Hx Substance Use: No Physical Exam Vital Signs Last Vital Signs Temp 36.7 C 09/04/19 13:01 Pulse 89 09/04/19 13:01 Resp 18 09/04/19 13:01 BP 104/86 09/04/19 13:01 Pulse Ox 98 09/04/19 13:01 Testing Laboratory Results 09/04/19 05:03 09/04/19 05:03 Hemoglobin A1c 5.6 % (4.5-5.6) 09/03/19 03:07 Urine Color Dark Yellow 09/03/19 06:20 Urine Appearance Turbid (Clear) A 09/03/19 06:20 Urine pH 5.0 (4.5-7.5) 09/03/19 06:20 Ur Specific [place] 1.028 (1.000-1.030) 09/03/19 06:20 Urine Protein 2+ (Negative) H 09/03/19 06:20 Urine Glucose (UA) Negative (Negative) 09/03/19 06:20 Urine Ketones Trace (Negative) H 09/03/19 06:20 Urine Nitrite Negative (Negative) 09/03/19 06:20 Ur Leukocyte Esterase Trace (Negative) H 09/03/19 06:20 Urine WBC (Auto) 10-30 /hpf (0-5) H 09/03/19 06:20 Urine RBC (Auto) 5-10 /hpf (0-4) H 09/03/19 06:20 U Hyaline Cast (Auto) >30 /lpf (0-5) H 09/03/19 06:20 U Epithel Cells (Auto) >30 /lpf (0-5) H 09/03/19 06:20 Urine Bacteria (Auto) Negative (Negative) 09/03/19 06:20 09/04/19 09/04/19 12:09 05:46 POC Glucose 122 H 126 H
--- NOTE | 2019-09-04 13:28 | Anesthesiology Consultation ---
Date of Service September 04, 2019 Assessment & Plan (1) Encounter for pre-operative examination: History Surgery Operation Date: 09/04/19 08:20 Proposed Procedures p Diagnostic Laparoscopy, Possible Laparotomy with Bowel Resection - Denver Gomez DO, FACS Height/Weight Height: 5 ft 6 in Weight: 78.3 kg Allergies Allergy/AdvReac Type Severity Reaction Status Date / Time No Known Allergies Allergy Verified 09/02/19 18:49 Medications Home Medications Medication Instructions Recorded Confirmed Last Taken aspirin [Aspir-81] 81 mg PO DAILY 09/02/19 09/02/19 09/02/19 cetirizine [Zyrtec] 10 mg PO DAILY 09/02/19 09/02/19 09/02/19 lisinopril 10 mg PO DAILY 09/02/19 09/02/19 09/02/19 multivitamin 1 tab PO DAILY 09/02/19 09/02/19 09/02/19 Active Medications Generic Name Dose Route Start Last Admin Trade Name Freq PRN Reason Stop Dose Admin Dextrose/Sodium Chloride 1,000 mls @ 60 mls/hr 09/03/19 11:00 09/04/19 02:38 D5w And 1/2nss IV 10/03/19 10:59 60 mls/hr .[id number] YISEL Administration Insulin Aspart 0 units 09/03/19 00:45 09/04/19 13:01 Novolog Flexpen SC 10/03/19 00:44 Not Given Q6 YISEL Ondansetron HCl 4 mg 09/03/19 00:32 09/03/19 13:02 Zofran IV 10/03/19 00:31 4 mg Q6H PRN Administration Nausea NPO Date Last Intake of Fluids: 09/04/19 Time Last Intake of Fluids: 12:00 Date Last Intake of Solids: 09/01/19 Past Medical History Medical History (Updated 09/04/19 @ 13:35 by Prisca Simon MD) Acute kidney injury Bleeding hemorrhoids (Inactive) Hypercalcemia Hypertension Hypokalemia (Inactive) Prediabetes Small bowel obstruction (Inactive) Past Surgical History Surgical History (Updated 09/04/19 @ 13:32 by Prisca Simon MD) Hx laparoscopic cholecystectomy S/P tonsillectomy and adenoidectomy Social History Smoking Status: Current every day smoker tobacco type: cigarettes Smoking cigarettes per day: 20 Hx Alcohol Use: No Hx Substance Use: No Physical Exam Vital Signs Last Vital Signs Temp 36.7 C 09/04/19 13:01 Pulse 89 09/04/19 13:01 Resp 18 09/04/19 13:01 BP 104/86 09/04/19 13:01 Pulse Ox 98 09/04/19 13:01 Testing Laboratory Results 09/04/19 05:03 09/04/19 05:03 Hemoglobin A1c 5.6 % (4.5-5.6) 09/03/19 03:07 Urine Color Dark Yellow 09/03/19 06:20 Urine Appearance Turbid (Clear) A 09/03/19 06:20 Urine pH 5.0 (4.5-7.5) 09/03/19 06:20 Ur Specific [place] 1.028 (1.000-1.030) 09/03/19 06:20 Urine Protein 2+ (Negative) H 09/03/19 06:20 Urine Glucose (UA) Negative (Negative) 09/03/19 06:20 Urine Ketones Trace (Negative) H 09/03/19 06:20 Urine Nitrite Negative (Negative) 09/03/19 06:20 Ur Leukocyte Esterase Trace (Negative) H 09/03/19 06:20 Urine WBC (Auto) 10-30 /hpf (0-5) H 09/03/19 06:20 Urine RBC (Auto) 5-10 /hpf (0-4) H 09/03/19 06:20 U Hyaline Cast (Auto) >30 /lpf (0-5) H 09/03/19 06:20 U Epithel Cells (Auto) >30 /lpf (0-5) H 09/03/19 06:20 Urine Bacteria (Auto) Negative (Negative) 09/03/19 06:20 09/04/19 09/04/19 12:09 05:46 POC Glucose 122 H 126 H Electrocardiogram Date: 09/02/19 Normal sinus rhythm with sinus arrhythmia Left atrial enlargement Poor R wave progression, consider anterior OR vs. lead placement vs. LVH Abnormal ECG When compared with ECG of 02-JAN-2015 23:28, No significant change was found Confirmed by Liu Gibson ([id number]) on 09/03/2019 8:05:45 AM Chest X-Ray Date: 09/04/19 IMPRESSION: 1. Mild bibasilar opacities that favor atelectasis. 2. Trace left pleural effusion.
[2019-09-04] MEDS ORDERED: BUPIVACAINE/EPINEPHRINE 0.25% 1:200,000 30 ML VIAL ONE (13:29)
[2019-09-04] MEDS ORDERED: ePHEDrine sulfate 50 MG/ML AMP IV PRN ×2 (13:36→13:53)
[2019-09-04] MEDS ORDERED: HYDROmorphone INJ 1 MG/ML SYRINGE IV PRN ×2 (13:36→13:53)
[2019-09-04] MEDS ORDERED: fentaNYL citrate 100 MCG/2 ML VIAL IV PRN ×2 (13:36→13:53)
[2019-09-04] MEDS ORDERED: ATROPINE SULFATE 0.1 MG/ML 10ML SYR IV PRN ×2 (13:36→13:53)
[2019-09-04] MEDS ORDERED: ONDANSETRON INJ 2 MG/ML 2 ML VIAL IV PRN ×2 (13:36→13:53)
[2019-09-04] MEDS ORDERED: fentaNYL citrate 100 MCG/2 ML VIAL ONE (13:39)
[2019-09-04] MEDS ORDERED: LIDOCAINE HCL 2% 2 ML VIAL/AMP(20MG/ML) INFIL ONE (13:39)
[2019-09-04] MEDS ORDERED: PROPOFOL IV EMULSION 10 MG/ML 20 ML VIAL IV ONE (13:39)
[2019-09-04] MEDS ORDERED: ROCURONIUM BROMIDE 10 MG/ML 5 ML VIAL IV ONE (13:39)
[2019-09-04] MEDS ORDERED: SUCCINYLCHOLINE 100MG/5ML SYR IV ONE (14:08)
[2019-09-04] MEDS ORDERED: ALBUTEROL HFA INHALER 8.5 GM ONE (14:23)
[2019-09-04] MEDS ORDERED: CEFAZOLIN 250 MG/ML 1 GM VIAL ONE (14:45)
[2019-09-04] MEDS ORDERED: DEXAMETHASONE SOD INJ 4 MG/ML VIAL ONE (14:55)
[2019-09-04] MEDS ORDERED: GLYCOPYRROLATE 0.2 MG/ML VIAL ONE (14:55)
[2019-09-04] MEDS ORDERED: NEOSTIGMINE METHYLSULFATE 5 MG/5 ML SYR ONE (14:55)
[2019-09-04] MEDS ORDERED: ONDANSETRON INJ 2 MG/ML 2 ML VIAL ONE (14:55)
[2019-09-04] MEDS ORDERED: BUPIVACAINE 0.5 % 5 MG/1 ML PF 10ML VIAL ONE (14:59)
--- NOTE | 2019-09-04 15:35 | Operative Report ---
PG Post Operative Report Pre & Post Diagnosis Operation Date: 09/04/19 08:20 Preoperative diagnosis: Small bowel obstruction Postoperative diagnosis: Small bowel obstruction secondary to adhesions and internal hernia I identified the patient and participated in the time-out.: Yes Procedure Operation Date: 09/04/19 08:20 Actual Procedures p Diagnostic Laparoscopy, Lysis of Adhesions (Not Applicable) - Denver Gomez DO, FEI Surgeon Denver Gomez DO, FEI [employer] Support Operations Operator Davis Almeida Estimated Blood Loss 5 Findings Consistent with Post-Op Diagnosis Omental adhesions to abdominal wall taken down with harmonic. Loop of dilated and friable bowel identified. Single band creating an internal hernia defect resulting in a closed-loop obstruction. Band divided, remainder of bowel run and lysis of adhesions performed. Loop of friable small bowel contained in internal hernia reexamined, appeared viable with peristalsis. Specimens None Anesthesia Type General Complications none Disposition Accompanied Patient To Recovery: No Disposition: Recovery Room Indications 84-year-old female presented with signs and symptoms of small bowel obstruction, possible closed-loop. She was treated with nonoperative management for 36 hours with failure to respond. After discussion, plan for diagnostic laparoscopy, possible laparotomy, possible bowel resection. The risks of the procedure were discussed, all questions were answered, and the patient agreed to proceed with surgery as planned. Description of Procedure The patient was properly identified, consented, and taken to the operating room where she was placed in the supine position. General endotracheal anesthesia was induced. An NG tube was already in place. A henley catheter, SCDs and a safety belt were placed. Preoperative antibiotics were administered. The patient's abdomen was prepped and draped in the standard sterile fashion. Surgical timeout was performed and all parties were in agreement that this was the correct patient and procedure to be performed and we continued as planned. An incision was made in the left upper quadrant and the Veress needle was inserted. Saline drop test confirmed entry into the peritoneum. The abdomen was insufflated with carbon dioxide which the patient tolerated without incident. The abdomen was then entered using the Optiview technique and a 5 mm trocar. The laparoscope was inserted and no damage from initial trocar or Veress needle placement was noted. There were omental adhesions to the anterior abdominal wall preventing placement of our other ports. A 5 mm port was then placed in the right upper quadrant. Harmonic scalpel was used to take down the omental adhesions to the abdominal wall. Hemostasis was good. There was a small calcified piece of omentum that was previously seen on imaging in the past at the abdominal wall that was left in place. After exploration of the abdomen with the laparoscope, we were able to identify dilated proximal small bowel leading into a single loop of erythematous and friable and dilated small bowel. Distal to this the bowel was decompressed. At this point we placed 5 mm ports in the left lower quadrant and left lateral abdomen. The patient was placed in Trendelenburg position and rotated to the left. We were able to immediately visualize the closed-loop obstruction that was being created. There was a single band that was causing this and proximal and distal to this the bowel appeared relatively normal. This band was divided. The mesentery showed some venous engorgement, but the bowel did appear viable. We then ran the small bowel from the terminal ileum proximally all the way to the ligament of Treitz. There were a few additional adhesions that were taken down with sharp dissection. We then were able to look at the loop of bowel which appeared to be peristalsing and viable. The remainder the abdomen was inspected and there was no evidence of any other abnormalities. Hemostasis was confirmed and the abdomen was irrigated. Laparoscopy was ceased and 5 mm trochars were removed under direct visualization and the abdomen was allowed to collapse. The skin of all ports was closed with 4-0 Monocryl subcuticular sutures. Dermabond was placed over the wounds. The patient was extubated in the operating room and taken to the PACU where she recovered without apparent incident. All sponge, instrument and needle counts were correct at the conclusion of the procedure. The patient tolerated the procedure well. The physician's assistant community manager was present and scrubbed for the entirety of the case. He was critical in positioning the patient, prepping and draping, retraction and exposure, driving the laparoscope, lysis of adhesions, closure the incisions, and placement of the dressings. I attest to the content of the Intraoperative Record and any orders documented therein. Any exceptions are noted below.
[2019-09-04] MEDS ORDERED: BUPIVACAINE 0.5 % 5 MG/1 ML MPF 30ML VIAL INFIL SCH (15:45)
--- NOTE | 2019-09-04 16:21 | Anesthesiology Progress Note ---
Date of Service September 04, 2019 Anesthesia Post Procedure Vital Signs Vital Signs: Temp Pulse Pulse Resp BP BP Pulse Ox 09/04/19 16:15 80 20 125/67 96 09/04/19 16:05 96 H 19 122/71 92 09/04/19 15:55 94 H 15 128/65 98 09/04/19 15:49 36.4 C L 99 H 18 114/77 97 09/04/19 13:01 36.7 C 89 18 104/86 98 09/04/19 07:34 36.4 C L 78 17 120/77 94 09/04/19 00:01 91 09/03/19 23:23 36.9 C 91 H 16 128/74 84 L Pain Intensity Abdomen: Pain Intensity: 4 Transfer of Care Handoff Completed per policy Notes Mental Status: alert / awake / arousable Patient Amnestic to Procedure: Yes Nausea / Vomiting: adequately controlled Pain: adequately controlled Airway Patency, RR, SpO2: stable & adequate BP & HR: stable & adequate Hydration State: stable & adequate Anesthetic Complications: no major complications apparent
[2019-09-04] MEDS ORDERED: MoRPHine SULFATE 2 MG/ML CARP IV PRN (16:37)
[2019-09-04] MEDS: D5W AND 1/2NSS + 20MEQ KCL 20 MEQ/1,000 ML BAG IV SCH (17:31)
[2019-09-05] MEDS: INSULIN ASPART 100 UNITS/ML 3 ML PEN SC SCH ×4 (00:34→18:39)
[2019-09-05] MEDS: D5W AND 1/2NSS + 20MEQ KCL 20 MEQ/1,000 ML BAG IV SCH ×3 (02:45→23:07)
[2019-09-05 05:37] LABS: Basophils # (auto) 0.01 K/uL (0-0.2); Basophils % (auto) 0.1 %; Eosinophils # (auto) 0.01 K/uL (0-0.5); Eosinophils % (auto) 0.1 %; Hematocrit (blood only) 47.5 % (37-47); Hemoglobin 14.9 g/dL (12.0-16.0); Immature Granulocytes # (auto) 0.04 K/uL (0.00-0.02); Immature Granulocytes % (auto) 0.2 %; Lymphocytes # (auto) 1.94 K/uL (1.2-3.4); Lymphocytes % (auto) 11.5 %; Mean Corpuscular Hemoglobin 30.7 pg (25-34); Mean Corpuscular Hgb Conc 31.4 g/dL (32-36); Mean Corpuscular Volume 97.7 fL (80-100); Mean Platelet Volume 10.7 fL (7.4-10.4); Monocytes # (auto) 1.45 K/uL (0.11-0.59); Monocytes % (auto) 8.6 %; Neutrophils # (auto) 13.38 K/uL (1.4-6.5); Neutrophils % (auto) 79.5 %; Platelet Count 197 K/uL (130-400); RDW Coefficient of Variation 13.8 % (11.5-14.5); RDW Standard Deviation 49.6 fL (36.4-46.3); Red Blood Count 4.86 M/uL (4.2-5.4); White Blood Count 16.83 K/uL (4.8-10.8)
[2019-09-05 06:40] LABS: BUN Creatinine Ratio 28.6 (10-20); Calcium 9.4 mg/dl (8.5-10.1); Creatinine Clr Calc Pharmacy 37.5 ml/min; Est GFR (African American) 47.8; Est GFR (Non-African American) 41.2; Potassium 3.4 mmol/L (3.5-5.1)
--- NOTE | 2019-09-05 08:27 | Surgery Progress Note ---
Date of Service September 05, 2019 Assessment & Plan (1) Small bowel obstruction: POD#1 diagnostic laparoscopy with lysis of adhesions WBC 16.8, down from 20. Patient afebrile NGT output 1500, plan to keep in place until return of bowel function Okay to d/c henley Encourage ambulation Supervising Physician Co-Signing Physician Notes Patient seen and examined, labs reviewed, agree with above. POD #1 laparoscopic lysis of adhesions for internal hernia with closed-loop obstruction. Doing well, some abdominal discomfort and cramping, but much better than prior to surgery. NG tube with 1500 cc, however she has been taking a lot of ice chips. She did pass some gas around 1115. Incisions healing well with some mild ecchymosis, abdomen mildly distended but improved. Appropriately tender to palpation, no guarding or rebound, improved from prior. WBC downtrending to 16 from 20 preop. Doing well, if she continues to pass gas we can clamp the NG tube and possibly DC this afternoon. Maybe start clears later tonight or tomorrow morning. Dr. Medina will be covering in my absence. Subjective Patient said she had a good night, but felt a little restless. Her biggest complaint is her sore throat from the NGT, says the spray isn't helping much. She is taking in some ice chips and says that helps her throat discomfort. Denies nausea. Thinks she may have passed a tiny amount of gas. No BM yet. Physical Exam Physical Exam: awake Respiratory: normal respiratory effort Gastrointestinal (Abdomen): Inspection/Auscultation: + abdominal surgical incision (lap sites c/d/i with dermabond overtop) Percussion/Palpation: + abdomen tender (ttp in upper abdomen) and abdomen soft NGT with brown/bilious output; documented 1500 Results & Data Vital Signs (Past 12 Hours) Vital Signs Temp Pulse Resp BP Pulse Ox 09/05/19 07:57 36.7 C 82 16 113/71 96 09/05/19 06:47 94 09/05/19 02:50 36.8 C 80 15 108/67 96 09/04/19 22:55 36.6 C 72 15 98/61 L 94 PG Care Time/CCT Total # of Minutes Spent Total Time Spent with Patient: Total time spent is greater than 50% in coordination of care (as documented) at patient's floor/unit and/or counseling patient: Coding Level of Care Code None Diagnoses Small bowel obstruction K56.609
--- NOTE | 2019-09-05 18:59 | Hospitalist Progress Note ---
Date of Service September 05, 2019 Assessment & Plan (1) Small bowel obstruction: 84-year-old female with history of hypertension, prediabetes, presenting with abdominal pain. SBO secondary to peritoneal adhesions, internal hernia --Postop day #1, status post diagnostic laparoscopy, lysis of adhesions --Leukocytosis improving, afebrile --NG tube clamped since patient has been passing flatus, per general surgery recommendations Continue to monitor Continue IV fluids Leukocytosis -Afebrile -Improved to 16 K -Urine cultures negative so far Elevated Lactic acid, on admission -resolved with IV fluids Hypercalcemia possible hyperparathyroidism -could be from dehydration -but elevated PTH with normal vitamin D suggest Hyperparathyroidism -normal TSH --Improving Acute kidney injury -Baseline creatinine of 0.9, but admitted with a creatinine of 1.4. -Improved to 1.2 Hypertension -blood pressure controlled while off GARCÍA inhibitor -Monitor BP Hyperglycemia on admission Prediabetes -admission glucose 265, has downtrended -HbA1c 5.6 -sliding scale insulin as needed Petechial rash in lower extremities -which started about a week ago -No rash noted Deep venous thrombosis prophylaxis, sequential compression devices. Disposition Pending Will need PT and OT evaluation Admission and Anticipated Discharge Date Admission Date: September 02, 2019 Subjective Follow-up for small bowel obstruction, status post surgery Seen resting at bedside chair Already passing gas, NG tube clamped Comfortable, not in distress, oriented x3 States she feels improved today compared to yesterday Feels sore around her abdomen, but no other pain Denies nausea, positive flatus, no BMs yet No chest pain, shortness of breath, palpitations, dizziness No other symptoms Review of Systems Review of Systems: All systems reviewed & are unremarkable except as noted in HPI & below Physical Exam Physical Exam: General- oriented x 3, not in distress, speaks in sentences with no effort or accessory muscle use Eyes- anicteric Neck- no JVD Lungs- clear breath sounds bilaterally, no rales/wheezes Heart- normal rate, regular rhythm; no murmurs Abdomen-hypoactive bowel sounds, nondistended, soft, nontender Surgical wounds: Healing well, no bleeding or discharge Extremities- no pretibial edema, no calf tenderness Neuro- alert, oriented x 3; no gross focal neurologic deficits Skin- warm & dry Results & Data Results & Data ([facility]) Vital Signs (Past 12 Hours) Vital Signs Temp Pulse Resp BP Pulse Ox 09/05/19 15:02 36.8 C 80 19 103/66 85 L 09/05/19 07:57 36.7 C 82 16 113/71 96 Laboratory Results Laboratory Results - last 24 hr 09/05/19 09/05/19 09/05/19 00:07 05:11 05:11 WBC 16.83 H RBC 4.86 Hgb 14.9 Hct 47.5 H MCV 97.7 MCH 30.7 MCHC 31.4 L RDW Std Deviation 49.6 H RDW Coeff of Breanna 13.8 Plt Count 197 MPV 10.7 H Immature Gran % (Auto) 0.2 Neut % (Auto) 79.5 Lymph % (Auto) 11.5 [place] % (Auto) 8.6 Eos % (Auto) 0.1 Baso % (Auto) 0.1 Neut # (Auto) 13.38 H Lymph # (Auto) 1.94 [place] # (Auto) 1.45 H Eos # (Auto) 0.01 Baso # (Auto) 0.01 Immature Gran # (Auto) 0.04 H Sodium 146 H Potassium 3.4 L Chloride 97 L Carbon Dioxide 46 H* Anion Gap 3.0 BUN 35 H Creatinine 1.22 H Est Cr Clr Drug Dosing 37.5 Est GFR ( Amer) 47.8 Est GFR (Non-Af Amer) 41.2 BUN/Creatinine Ratio 28.6 H Glucose 107 H POC Glucose 120 H Calcium 9.4 09/05/19 09/05/19 09/05/19 05:59 12:10 16:21 WBC RBC Hgb Hct MCV MCH MCHC RDW Std Deviation RDW Coeff of Breanna Plt Count MPV Immature Gran % (Auto) Neut % (Auto) Lymph % (Auto) [place] % (Auto) Eos % (Auto) Baso % (Auto) Neut # (Auto) Lymph # (Auto) [place] # (Auto) Eos # (Auto) Baso # (Auto) Immature Gran # (Auto) Sodium Potassium Chloride Carbon Dioxide Anion Gap BUN Creatinine Est Cr Clr Drug Dosing Est GFR ( Amer) Est GFR (Non-Af Amer) BUN/Creatinine Ratio Glucose POC Glucose 108 H 108 H 103 H Calcium
[2019-09-06] MEDS: INSULIN ASPART 100 UNITS/ML 3 ML PEN SC SCH ×5 (00:59→23:01)
[2019-09-06] MEDS ORDERED: ALBUT/IPRATROP 3MG/0.5MG NEB 3 ML VIAL NEB STA (01:06)
[2019-09-06] MEDS ORDERED: PIPERACILL/TAZOBAC CONSULT ACTIVE PRN (01:06)
--- NOTE | 2019-09-06 01:08 | Communication Note ---
Date of Service: September 06, 2019 Made aware by RN around 130 AM of px hypoxemia, O2 sats 70s on room air. Patient denies chest pain. Junky cough symptoms w/ some shortness of breath. Cough symptoms noted after NGT insertion few days ago as per patient. Chest x-ray as per my interpretation : Atelectasis, congestion, ? Infiltrate left AP Hypoxemic respiratory failure secondary to H CAP/possible aspiration pneumonitis hx emesis secondary to SBO status post NGT insertion Possible sepsis Supplemental O2 Baseline ABG Cultures, check lactic acid Zosyn Solu-Medrol, nebs 1 dose for possible aspiration pneumonia causing hypoxemia. Will relay to AM provider.
[2019-09-06] MEDS ORDERED: PIPERACILLIN/TAZOBACTAM 4.5 GM in DEXTROSE 5% 100 ML IV ONE (01:15)
[2019-09-06] MEDS ORDERED: methylPREDNISolone 20 MG in SYRINGE 0 ML IV ONE (01:15)
[2019-09-06 01:16] LABS: Basophils # (auto) 0.02 K/uL (0-0.2); Basophils % (auto) 0.2 %; Eosinophils # (auto) 0.32 K/uL (0-0.5); Eosinophils % (auto) 2.4 %; Hematocrit (blood only) 44.8 % (37-47); Hemoglobin 14.1 g/dL (12.0-16.0); Immature Granulocytes # (auto) 0.03 K/uL (0.00-0.02); Immature Granulocytes % (auto) 0.2 %; Lymphocytes % (auto) 15.2 %; Mean Corpuscular Hemoglobin 30.3 pg (25-34); Mean Corpuscular Hgb Conc 31.5 g/dL (32-36); Mean Corpuscular Volume 96.3 fL (80-100); Mean Platelet Volume 10.9 fL (7.4-10.4); Monocytes # (auto) 1.25 K/uL (0.11-0.59); Monocytes % (auto) 9.5 %; Neutrophils % (auto) 72.5 %; Platelet Count 180 K/uL (130-400); RDW Coefficient of Variation 13.2 % (11.5-14.5); Red Blood Count 4.65 M/uL (4.2-5.4); White Blood Count 13.12 K/uL (4.8-10.8)
[2019-09-06 01:23] LABS: Base Excess ABG 17.5 mEq/L (-9-1.8); HCO3 ABG 44 mmol/L (19-24); Oxygen Saturation ABG 92.5 % (90-95); PCO2 ABG 61 mmHg (35-46); PO2 ABG 69 mmHg (80-95); pH ABG 7.48 (7.35-7.45)
[2019-09-06 01:25] LABS: Allen Test POS (Pos)
[2019-09-06 01:28] LABS: Partial Thromboplastin Ratio 0.9; Partial Thromboplastin Time 24.2 Seconds (21.0-31.0)
[2019-09-06 01:39] LABS: BUN Creatinine Ratio 33.5 (10-20); Creatinine Clr Calc Pharmacy 49.3 ml/min; Est GFR (African American) 66.3; Est GFR (Non-African American) 57.2; Magnesium 2.1 mg/dl (1.8-2.4); Potassium 3.3 mmol/L (3.5-5.1)
[2019-09-06] MEDS ORDERED: LACTATED RINGER'S 1,000 ML IV SCH (01:45)
[2019-09-06] MEDS: POTASSIUM CHLORIDE / WTR 10 MEQ/100 ML PLCT IV SCH ×2 (02:02→03:08)
[2019-09-06] MEDS: PIPERACILLIN/TAZOBACTAM 3.375 GM in DEXTROSE 5% 100 ML IV SCH ×3 (05:54→22:50)
--- NOTE | 2019-09-06 07:20 | XRay Report ---
XR chest 1V portable CLINICAL HISTORY: low o2 COMPARISON STUDY: 09/04/2019 FINDINGS: Unchanged minimal left basilar atelectasis. Mild prominence of pulmonary vasculature. Nasogastric tube within the stomach. IMPRESSION: Minimal atelectasis left base. Developing pulmonary vascular congestion. ACT 112: Negative or not required by law. The above report was generated using voice recognition software. It may contain grammatical, syntax or spelling errors. Electronically signed by: Luís Pritchard M.D. 09/06/2019 7:19 AM
--- NOTE | 2019-09-06 08:40 | Surgery Progress Note ---
Date of Service September 06, 2019 Assessment & Plan (1) Small bowel obstruction: clinically improving NGT clamped overnight without issue.... will d/c and start sips of clears awaiting full return of bowel fx Dr. De La Cruz covering for weekend. Subjective pt doing ok. +flatus. no bm but does have the urge NGT clamped overnight. no n/v. pain controlled. Physical Exam Physical Exam: alert. nad NGT clamped abd: soft. mild distension. +bs's Results & Data Vital Signs (Past 12 Hours) Vital Signs Temp Pulse Resp BP Pulse Ox 09/06/19 07:17 36.8 C 74 17 116/66 95 09/06/19 01:25 97 H 16 92 09/05/19 23:55 93 09/05/19 22:51 91 09/05/19 22:50 36.6 C 82 15 118/70 75 L PG Care Time/CCT Total # of Minutes Spent Total Time Spent with Patient: Total time spent is greater than 50% in coordination of care (as documented) at patient's floor/unit and/or counseling patient: Coding Level of Care Code None Diagnoses Small bowel obstruction K56.609
[2019-09-06] MEDS ORDERED: Nursing to Pharmacy Communication SCH (08:45)
[2019-09-06] MEDS ORDERED: FUROSEMIDE 40 MG TAB PO ONE (11:13)
[2019-09-06] MEDS: POTASSIUM CHLORIDE 20 MEQ TABCR PO SCH ×2 (12:03→20:57)
--- NOTE | 2019-09-06 15:35 | Hospitalist Progress Note ---
Date of Service September 06, 2019 Assessment & Plan (1) Small bowel obstruction: 84-year-old female with history of hypertension, prediabetes, presenting with abdominal pain. SBO secondary to peritoneal adhesions, internal hernia --Postop day #, status post diagnostic laparoscopy, lysis of adhesions --Leukocytosis improving, afebrile --NG tube removed, clear liquids ordered Continue to monitor Hypoxia --Likely secondary to volume overload --Chest x-ray: Pulmonary vascular congestion --Continue Zosyn for now, DC tomorrow if patient remains afebrile Lasix 40 mg IV 1 dose given Encouraged to use incentive spirometer a frequent as possible Leukocytosis -Afebrile -Improved to 13 K -Urine cultures negative so far Elevated Lactic acid, on admission -resolved with IV fluids Hypercalcemia possible hyperparathyroidism - could be from dehydration - but elevated PTH with normal vitamin D suggest Hyperparathyroidism --normal TSH --Improving Acute kidney injury -Baseline creatinine of 0.9, but admitted with a creatinine of 1.4. -Improved to 0.9 Hypertension -blood pressure controlled while off GARCÍA inhibitor -Monitor BP Hyperglycemia on admission Prediabetes -admission glucose 265, has downtrended -HbA1c 5.6 -sliding scale insulin as needed Petechial rash in lower extremities -which started about a week ago -No rash noted Deep venous thrombosis prophylaxis, sequential compression devices. Disposition Pending Will need PT and OT evaluation Admission and Anticipated Discharge Date Admission Date: September 02, 2019 Subjective Follow-up for bowel obstruction Seen resting in bed, comfortable, alert, oriented x3 On 2 L of nasal cannula Patient is in good spirits States she feels better today, no abdominal pain Tolerating clears so far Has occasional cough with yellow phlegm associated with removal of the NG tube Denies fevers or chills, shortness of breath, chest pain No other symptoms Review of Systems Review of Systems: All systems reviewed & are unremarkable except as noted in HPI & below Physical Exam Physical Exam: General- oriented x 3, not in distress, speaks in sentences with no effort or accessory muscle use Eyes- anicteric Neck- no JVD Lungs-diminished breath sounds at the bases, no wheezing, good air entry bilaterally Heart- normal rate, regular rhythm; no murmurs Abdomen- normal bowel sounds, nondistended, soft, nontender Extremities-trace pretibial edema, no calf tenderness Neuro- alert, oriented x 3; no gross focal neurologic deficits Skin- warm & dry Results & Data Results & Data ([facility]) Vital Signs (Past 12 Hours) Vital Signs Temp Pulse Resp BP Pulse Ox 09/06/19 15:19 36.6 C 73 16 169/84 H 93 09/06/19 14:16 97 09/06/19 07:17 36.8 C 74 17 116/66 95 Laboratory Results Laboratory Results - last 24 hr 09/05/19 09/05/19 09/06/19 16:21 23:51 01:08 WBC 13.12 H RBC 4.65 Hgb 14.1 Hct 44.8 MCV 96.3 MCH 30.3 MCHC 31.5 L RDW Std Deviation 47.0 H RDW Coeff of Breanna 13.2 Plt Count 180 MPV 10.9 H Immature Gran % (Auto) 0.2 Neut % (Auto) 72.5 Lymph % (Auto) 15.2 [place] % (Auto) 9.5 Eos % (Auto) 2.4 Baso % (Auto) 0.2 Neut # (Auto) 9.50 H Lymph # (Auto) 2.00 [place] # (Auto) 1.25 H Eos # (Auto) 0.32 Baso # (Auto) 0.02 Immature Gran # (Auto) 0.03 H APTT PTT Ratio ABG pH ABG pCO2 ABG pO2 ABG HCO3 ABG O2 Saturation ABG Base Excess Randall Test Barometric Pressure Oxygen Given Sodium Potassium Chloride Carbon Dioxide Anion Gap BUN Creatinine Est Cr Clr Drug Dosing Est GFR ( Amer) Est GFR (Non-Af Amer) BUN/Creatinine Ratio Glucose POC Glucose 103 H 111 H Lactate Calcium Magnesium Specimen Hemolysis 09/06/19 09/06/19 09/06/19 01:08 01:08 01:08 WBC RBC Hgb Hct MCV MCH MCHC RDW Std Deviation RDW Coeff of Breanna Plt Count MPV Immature Gran % (Auto) Neut % (Auto) Lymph % (Auto) [place] % (Auto) Eos % (Auto) Baso % (Auto) Neut # (Auto) Lymph # (Auto) [place] # (Auto) Eos # (Auto) Baso # (Auto) Immature Gran # (Auto) APTT 24.2 PTT Ratio 0.9 ABG pH 7.48 H ABG pCO2 61 H ABG pO2 69 L ABG HCO3 44 H ABG O2 Saturation 92.5 ABG Base Excess 17.5 H Randall Test POS Barometric Pressure 730.7 Oxygen Given 2L O2 Sodium 140 Potassium 3.3 L Chloride 99 Carbon Dioxide 39 H Anion Gap 2.0 L BUN 31 H Creatinine 0.93 Est Cr Clr Drug Dosing 49.3 Est GFR ( Amer) 66.3 Est GFR (Non-Af Amer) 57.2 BUN/Creatinine Ratio 33.5 H Glucose 114 H POC Glucose Lactate Calcium 9.0 Magnesium 2.1 Specimen Hemolysis 09/06/19 09/06/19 09/06/19 01:08 05:54 12:04 WBC RBC Hgb Hct MCV MCH MCHC RDW Std Deviation RDW Coeff of Breanna Plt Count MPV Immature Gran % (Auto) Neut % (Auto) Lymph % (Auto) [place] % (Auto) Eos % (Auto) Baso % (Auto) Neut # (Auto) Lymph # (Auto) [place] # (Auto) Eos # (Auto) Baso # (Auto) Immature Gran # (Auto) APTT PTT Ratio ABG pH ABG pCO2 ABG pO2 ABG HCO3 ABG O2 Saturation ABG Base Excess Randall Test Barometric Pressure Oxygen Given Sodium Potassium Chloride Carbon Dioxide Anion Gap BUN Creatinine Est Cr Clr Drug Dosing Est GFR ( Amer) Est GFR (Non-Af Amer) BUN/Creatinine Ratio Glucose POC Glucose 123 H 102 H Lactate 0.7 Calcium Magnesium Specimen Hemolysis
[2019-09-07] MEDS: PIPERACILLIN/TAZOBACTAM 3.375 GM in DEXTROSE 5% 100 ML IV SCH ×2 (05:55→13:16)
[2019-09-07] MEDS: POTASSIUM CHLORIDE 20 MEQ TABCR PO SCH (08:13)
[2019-09-07] MEDS: INSULIN ASPART 100 UNITS/ML 3 ML PEN SC SCH ×4 (09:00→21:50)
--- NOTE | 2019-09-07 10:46 | Surgery Progress Note ---
Date of Service September 07, 2019 Assessment & Plan (1) Small bowel obstruction: doing well advance diet possibly home soon Subjective Passing liquid stool pain minimal walking well Review of Systems Constitutional: no fever and no chills Respiratory: no cough and no dyspnea Cardiovascular: no chest pain Gastrointestinal: + abdominal pain and + diarrhea/loose stools; no nausea and no vomiting Genitourinary: no dysuria Musculoskeletal: no back pain Integumentary: no rash and no yellowing of the skin Neurologic: no problem reported Physical Exam Constitutional: well developed and well nourished Neck: trachea midline Respiratory: normal respiratory effort, lungs clear to auscultation Cardiovascular: RRR, no murmur, no edema Gastrointestinal (Abdomen): Inspection/Auscultation: abdomen normal to in spection and normal bowel sounds; abdomen not distended Percussion/Palpation: abdomen nontender Musculoskeletal: Head/Neck/Chest: normocephalic and head atraumatic Skin: no rashes, warm and dry Results & Data Vital Signs (Past 12 Hours) Vital Signs Temp Pulse Resp BP BP Pulse Ox 09/07/19 07:20 36.7 C 70 20 133/72 99 09/07/19 06:18 88 L 09/07/19 06:17 94 09/07/19 03:00 97 09/07/19 01:00 74 88 L 09/06/19 22:56 36.7 C 79 18 119/68 91
[2019-09-07 12:20] LABS: Basophils # (auto) 0.02 K/uL (0-0.2); Basophils % (auto) 0.2 %; Eosinophils # (auto) 0.48 K/uL (0-0.5); Eosinophils % (auto) 4.2 %; Hematocrit (blood only) 47.5 % (37-47); Hemoglobin 15.3 g/dL (12.0-16.0); Immature Granulocytes # (auto) 0.05 K/uL (0.00-0.02); Immature Granulocytes % (auto) 0.4 %; Lymphocytes # (auto) 1.91 K/uL (1.2-3.4); Lymphocytes % (auto) 16.6 %; Mean Corpuscular Hemoglobin 30.5 pg (25-34); Mean Corpuscular Hgb Conc 32.2 g/dL (32-36); Mean Corpuscular Volume 94.6 fL (80-100); Mean Platelet Volume 10.3 fL (7.4-10.4); Monocytes # (auto) 1.03 K/uL (0.11-0.59); Monocytes % (auto) 8.9 %; Neutrophils # (auto) 8.05 K/uL (1.4-6.5); Neutrophils % (auto) 69.7 %; Platelet Count 196 K/uL (130-400); RDW Coefficient of Variation 12.9 % (11.5-14.5); RDW Standard Deviation 44.7 fL (36.4-46.3); Red Blood Count 5.02 M/uL (4.2-5.4); White Blood Count 11.54 K/uL (4.8-10.8)
[2019-09-07 12:41] LABS: BUN Creatinine Ratio 26.7 (10-20); Calcium 9.6 mg/dl (8.5-10.1); Creatinine Clr Calc Pharmacy 44.9 ml/min; Est GFR (African American) 59.3; Est GFR (Non-African American) 51.2
--- NOTE | 2019-09-07 20:27 | Hospitalist Progress Note ---
Date of Service September 07, 2019 Assessment & Plan (1) Small bowel obstruction: 84-year-old female with history of hypertension, prediabetes, presenting with abdominal pain. SBO secondary to peritoneal adhesions, internal hernia --Postop day #3, status post diagnostic laparoscopy, lysis of adhesions --Leukocytosis improving, afebrile --NG tube removed, advance diet slowly Continue to monitor Hypoxia --Likely secondary to volume overload --Chest x-ray: Pulmonary vascular congestion -- Lasix 40 mg IV 1 dose given, resolved d/c Zosyn Encouraged to use incentive spirometer a frequent as possible Leukocytosis -Afebrile -Improving -Urine cultures negative so far Elevated Lactic acid, on admission -resolved with IV fluids Hypercalcemia possible hyperparathyroidism - could be from dehydration - but elevated PTH with normal vitamin D suggest Hyperparathyroidism --normal TSH --Improving Acute kidney injury -Baseline creatinine of 0.9, but admitted with a creatinine of 1.4. -Improved to 0.9 Hypertension -blood pressure controlled while off GARCÍA inhibitor -Monitor BP Hyperglycemia on admission Prediabetes -admission glucose 265, has downtrended -HbA1c 5.6 -sliding scale insulin as needed Petechial rash in lower extremities -which started about a week ago -No rash noted Deep venous thrombosis prophylaxis, sequential compression devices. Disposition Pending Will need PT and OT evaluation Admission and Anticipated Discharge Date Admission Date: September 02, 2019 Subjective ff up for SBO seen resting in bed, comfortable states she feels better today no nausea/vomiting, tolerating diet, (+) BMs has occasional productive cough no chills, SOB denies other symptoms Review of Systems Review of Systems: All systems reviewed & are unremarkable except as noted in HPI & below Physical Exam Physical Exam: General- oriented x 3, not in distress, speaks in sentences with no effort or accessory muscle use Eyes- anicteric Neck- no JVD Lungs- clear BS BL no rales/wheezing Heart- normal rate, regular rhythm; no murmurs Abdomen- normal bowel sounds, nondistended, soft, nontender Extremities- no pretibial edema, no calf tenderness Neuro- alert, oriented x 3; no gross focal neurologic deficits Skin- warm & dry Results & Data Results & Data ([facility]) Vital Signs (Past 12 Hours) Vital Signs Temp Pulse Resp BP Pulse Ox 09/07/19 16:00 82 18 92 09/07/19 14:58 36.6 C 83 20 128/76 92 Laboratory Results Laboratory Results - last 24 hr 09/06/19 09/07/19 09/07/19 20:37 08:11 12:11 WBC 11.54 H RBC 5.02 Hgb 15.3 Hct 47.5 H MCV 94.6 MCH 30.5 MCHC 32.2 RDW Std Deviation 44.7 RDW Coeff of Breanna 12.9 Plt Count 196 MPV 10.3 Immature Gran % (Auto) 0.4 Neut % (Auto) 69.7 Lymph % (Auto) 16.6 Dickenson % (Auto) 8.9 Eos % (Auto) 4.2 Baso % (Auto) 0.2 Neut # (Auto) 8.05 H Lymph # (Auto) 1.91 Dickenson # (Auto) 1.03 H Eos # (Auto) 0.48 Baso # (Auto) 0.02 Immature Gran # (Auto) 0.05 H Sodium Potassium Chloride Carbon Dioxide Anion Gap BUN Creatinine Est Cr Clr Drug Dosing Est GFR ( Amer) Est GFR (Non-Af Amer) BUN/Creatinine Ratio Glucose POC Glucose 116 H 84 Calcium 09/07/19 09/07/19 09/07/19 12:11 12:12 17:15 WBC RBC Hgb Hct MCV MCH MCHC RDW Std Deviation RDW Coeff of Breanna Plt Count MPV Immature Gran % (Auto) Neut % (Auto) Lymph % (Auto) Dickenson % (Auto) Eos % (Auto) Baso % (Auto) Neut # (Auto) Lymph # (Auto) Dickenson # (Auto) Eos # (Auto) Baso # (Auto) Immature Gran # (Auto) Sodium 138 Potassium 4.0 D Chloride 101 Carbon Dioxide 30 Anion Gap 7.0 BUN 27 H Creatinine 1.02 Est Cr Clr Drug Dosing 44.9 Est GFR ( Amer) 59.3 Est GFR (Non-Af Amer) 51.2 BUN/Creatinine Ratio 26.7 H Glucose 85 POC Glucose 87 88 Calcium 9.6
[2019-09-07] MEDS ORDERED: Nursing to Pharmacy Communication SCH (20:45)
[2019-09-07] MEDS: POTASSIUM CHLORIDE 10 MEQ TABCR PO SCH (21:23)
--- NOTE | 2019-09-08 08:30 | Surgery Progress Note ---
Date of Service September 08, 2019 Assessment & Plan (1) Small bowel obstruction: discharge per medical team and is ready from a surgical standpoint F/U [address] Gomez no strenuous activity 3-4 weeks regular diet shower OK OK to drive after seen in clinic Subjective POD#4 eating regualr diet passing stool pain minimal Review of Systems Constitutional: no fever and no chills Cardiovascular: no chest pain Gastrointestinal: no abdominal pain, no nausea and no vomiting Genitourinary: no dysuria Musculoskeletal: no back pain Integumentary: no rash Physical Exam Constitutional: well developed and well nourished Neck: trachea midline Respiratory: normal respiratory effort, lungs clear to auscultation Cardiovascular: RRR, no murmur, no edema Gastrointestinal (Abdomen): Inspection/Auscultation: abdomen not distended Percussion/Palpation: abdomen nontender, no guarding and no hernia Musculoskeletal: Head/Neck/Chest: normocephalic and head atraumatic Skin: no rashes, warm and dry no jaundice Results & Data Vital Signs (Past 12 Hours) Vital Signs Temp Pulse Resp BP Pulse Ox 09/08/19 07:17 36.9 C 69 18 117/68 95 09/08/19 05:18 36.9 C 09/08/19 00:11 96 09/07/19 23:40 91 09/07/19 23:10 36.8 C 74 16 131/73 92 09/07/19 22:43 76 92
[2019-09-08] MEDS: INSULIN ASPART 100 UNITS/ML 3 ML PEN SC SCH ×2 (08:31→12:56)
[2019-09-08] MEDS: POTASSIUM CHLORIDE 10 MEQ TABCR PO SCH (08:34)
--- NOTE | 2019-09-08 16:49 | Hospitalist Progress Note ---
Date of Service September 08, 2019 Assessment & Plan (1) Small bowel obstruction: 84-year-old female with history of hypertension, prediabetes, presenting with abdominal pain. SBO secondary to peritoneal adhesions, internal hernia --Postop day #4, status post diagnostic laparoscopy, lysis of adhesions --Leukocytosis improving, afebrile --NG tube removed, tolerating regular diet well -- cleared for discharge by Gen Surg soft, low fiber diet ff up with Surgeon Dr. Gomez in 2 weeks Hypoxia --Likely secondary to volume overload --Chest x-ray: Pulmonary vascular congestion -- Lasix 40 mg IV 1 dose given, resolved d/c Zosyn Encouraged to use incentive spirometer a frequent as possible -- no respiratory symptoms Leukocytosis -Afebrile -Improving -Urine cultures negative so far Elevated Lactic acid, on admission -resolved with IV fluids Hypercalcemia possible hyperparathyroidism - could be from dehydration - but elevated PTH with normal vitamin D suggest Hyperparathyroidism --normal TSH --Improving --follow up and further work up with PCP follow up Acute kidney injury -Baseline creatinine of 0.9, but admitted with a creatinine of 1.4. -Improved to 0.9 Hypertension -blood pressure controlled while off Lisinopril -hold Lisinopril for now until ff up with PCP -Monitor BP Prediabetes -admission glucose 265, has downtrended -HbA1c 5.6 Petechial rash in lower extremities -which started about a week ago -resolved ff up with PCP Disposition d/c home ff up with PCP in 1 week ff up with Gen Surg in 2 weeks Admission and Anticipated Discharge Date Admission Date: September 02, 2019 Subjective ff up for SBO seen resting in bedside chair, comfortable, in good spirits states she feels fine overall no abdominal pain, nausea/vomiting, tolerating diet well no chest pain, cough, sputum , chills no other symptoms states he is ready and would like to be discharged Review of Systems Review of Systems: All systems reviewed & are unremarkable except as noted in HPI & below Physical Exam Physical Exam: General- oriented x 3, not in distress, speaks in sentences with no effort or accessory muscle use Eyes- anicteric Neck- no JVD Lungs- clear breath sounds , no crackles or wheezing bilaterally Heart- normal rate, regular rhythm; no murmurs Abdomen- normal bowel sounds, nondistended, soft, nontender Extremities- trace pretibial edema- no erythema/warmth, no calf tenderness Neuro- alert, oriented x 3; no gross focal neurologic deficits Skin- warm & dry Results & Data Results & Data ([facility]) Vital Signs (Past 12 Hours) Vital Signs Temp Pulse Resp BP BP Pulse Ox 09/08/19 14:57 78 16 121/71 94 09/08/19 12:02 94 09/08/19 07:17 36.9 C 69 18 117/68 95 09/08/19 05:18 36.9 C
--- NOTE | 2019-09-08 17:16 | Discharge Summary ---
Date of Service September 08, 2019 Admission HPI Per Admitting Provider HISTORY OF PRESENT ILLNESS: This is an 84-year-old female with past medical history significant for prediabetes, hypertension, history of small-bowel obstruction 50 years ago, who comes with abdominal pain that started today morning and progressively the pain got severe, about 10/10 in severity. Later in the afternoon, she started to have nausea and vomiting and vomited like 4-5 times. In the ER, again she vomited. Last bowel movement was yesterday which was constipated. Denies any fever, chills. No cough, no shortness of breath, no chest pain, no loss of sense of smell or taste. No headache, no blurred vision, no earache, no runny nose, no dysphagia. Normal bladder movements. Currently, she has an NG tube and she is feeling a little better. Admission Exam Per Admitting Provider GENERAL: The patient is of moderate build, not in acute distress. VITAL SIGNS: Temperature 36.3, pulse 110, respiratory rate 22, blood pressure is 170/113, and oxygen 97% on room air. HEENT: No pallor, no icterus. Pupils equal, round, and reactive to light. NECK: No JVD, no neck masses, no carotid bruits. CARDIOVASCULAR: S1, S2 heard, regular rate and rhythm, no murmur, no gallop. RESPIRATORY SYSTEM: Normal AP diameter. No accessory muscle use. No wheezing, no crackles. ABDOMEN: Soft, bowel sounds sluggish. Diffuse mild discomfort. No guarding, no rigidity, no distention. CENTRAL NERVOUS SYSTEM: Cranial nerves II-XII grossly intact. Nonfocal. EXTREMITIES: Some petechial rash seen in the lower extremities. No edema seen. Principal Diagnosis SMALL BOWEL OBSTRUCTION, SECONDARY TO PERITONEAL ADHESIONS Discharge Exam General- oriented x 3, not in distress, speaks in sentences with no effort or accessory muscle use Eyes- anicteric Neck- no JVD Lungs- clear breath sounds , no crackles or wheezing bilaterally Heart- normal rate, regular rhythm; no murmurs Abdomen- normal bowel sounds, nondistended, soft, nontender Extremities- trace pretibial edema- no erythema/warmth, no calf tenderness Neuro- alert, oriented x 3; no gross focal neurologic deficits Skin- warm & dry Discharge Data Allergies Allergy/AdvReac Type Severity Reaction Status Date / Time No Known Allergies Allergy Verified 09/02/19 18:49 Consultations 09/02/19 22:12 ED Decision to Admit Stat 09/03/19 00:32 Consult Case Management - Discharge Planning Routine Consult General Surgery Routine Procedures Performed Operation Date: 09/04/19 08:20 Actual Procedures p Diagnostic Laparoscopy, Lysis of Adhesions (Not Applicable) - Denver Rodriguez, DO, FACS Ordered Studies 09/02/19 19:31 CT abd pelvis wo con Stat Lung bases: The heart is normal in size and without pericardial effusion. The lung bases are clear. There is a moderate hiatal hernia. Liver: The unenhanced liver is cirrhotic in morphology and heterogeneous in attenuation. There is nodularity of the hepatic surface contour. There is minimal central intrahepatic biliary ductal dilatation. Gallbladder: Surgically absent noting clips in the gallbladder fossa. Spleen: Normal in size and attenuation. Pancreas: The unenhanced pancreas is moderately atrophic and grossly unremark able. Adrenal glands: There is nodular thickening of the adrenal glands. Kidneys: The unenhanced kidneys demonstrate cortical atrophy and are without hydronephrosis. There is an 8 mm nonobstructing calculus in the left lower pole. No additional calculi are seen in either kidney. There is no evidence of contour deforming renal mass lesion. Abdominal vasculature: The abdominal aorta is normal in course and caliber noting advanced atherosclerotic calcification. Bowel: The proximal small bowel loops are distended and fluid-filled, measuring up to 3.3 cm in diameter. The distal small bowel loops and colon are decompressed. 2 transition points are suggested in the pelvis on images #246 and #262. The appearance is consistent with a small bowel obstruction. The 2 transition points raise concern for a closed loop obstruction, possibly related to an internal hernia. There are thick walled bowel loops identified in the pelvis with interloop fluid and surrounding inflammation. There is venous engorgement of the surrounding mesenteric vessels. No pneumatosis intestinalis or portal venous gas is seen. The appendix is not visualized. Peritoneum: There is trace abdominopelvic ascites. No intraperitoneal free air is seen. A mesenteric calcification is noted in the ventral pelvis on image #296 and measures 2.2 cm. Lymphadenopathy: None. Pelvic viscera: The bladder, uterus, and adnexa are normal as visualized. Skeletal structures: The skeletal structures are osteopenic. Moderate lumbosacral spondylosis is observed. No lytic or blastic lesions are seen. IMPRESSION: 1. Significantly suboptimal examination without oral and IV contrast. 2. Findings are consistent with a small bowel obstruction as above. 3. There are 2 transition points suggested in the pelvis, and the appearance is concerning for a closed loop type obstruction. There are thick walled bowel loops in the pelvis with surrounding inflammation, interloop fluid, and surrounding venous engorgement. These loops are at risk and surgical consultation is advised. 4. There is a small volume of abdominopelvic ascites. 5. No intraperitoneal free air is identified. There is no pneumatosis intestinalis or portal venous gas. 6. Cirrhotic liver morphology. 7. Left-sided nephrolithiasis. 8. Moderate hiatal hernia. 9. Additional findings as above. Hospital Course (1) Small bowel obstruction: 84-year-old female with history of hypertension, prediabetes, presenting with abdominal pain. SBO secondary to peritoneal adhesions, internal hernia --Postop day #4, status post diagnostic laparoscopy, lysis of adhesions --Leukocytosis improving, afebrile --NG tube removed, tolerating regular diet well -- cleared for discharge by Gen Surg soft, low fiber diet ff up with Surgeon Dr. Rodriguez in 2 weeks Hypoxia --Likely secondary to volume overload --Chest x-ray: Pulmonary vascular congestion -- Lasix 40 mg IV 1 dose given, resolved d/c Zosyn Encouraged to use incentive spirometer a frequent as possible -- no respiratory symptoms Leukocytosis -Afebrile -Improving -Urine cultures negative so far Elevated Lactic acid, on admission -resolved with IV fluids Hypercalcemia possible hyperparathyroidism - could be from dehydration - but elevated PTH with normal vitamin D suggest Hyperparathyroidism --normal TSH --Improving --follow up and further work up with PCP follow up Acute kidney injury -Baseline creatinine of 0.9, but admitted with a creatinine of 1.4. -Improved to 0.9 Hypertension -blood pressure controlled while off Lisinopril -hold Lisinopril for now until ff up with PCP -Monitor BP Prediabetes -admission glucose 265, has downtrended -HbA1c 5.6 Petechial rash in lower extremities -which started about a week ago -resolved ff up with PCP Abormal CT Finding per CT Abd/pelvis: Liver: The unenhanced liver is cirrhotic in morphology and heterogeneous in atte nuation. There is nodularity of the hepatic surface contour. There is minimal central intrahepatic biliary ductal dilatation. full report of the CT abd/pelvis outlined in the ordered studies above follow up and work up as outpatient Disposition d/c home ff up with PCP in 1 week ff up with Gen Surg in 2 weeks Total Time Total Time Spent Total Time Spent (In Minutes): 60 minutes Discharge Plan Discharge Items Patient Disposition: Home - Self-Care Reason For Visit: ABD PAIN Discharge Diagnosis: SMALL BOWEL OBSTRUCTION S/P LYSIS OF ADHESIONS Activity: Per Instructions section Lifting: No more than 10 pounds Bathing Comment: may shower; no soaking in tubs/pools Exercise/Sports: Wait until after follow-up appointment Driving/Machine Use: Resume 3 days after discharge Non-emergency contact: Primary Care Provider Call non-emergency contact if: you have any medication questions, your symptoms worsen, your pain is not controlled, your pain is worsening, you have a fever, your temperature is above 101.5, your wound has increased redness, your wound has increased drainage and your wound pain has increased Follow-up/Referrals: Denver Rodriguez DO, FACS [Physician] - (Please call the office to schedule follow up in clinic within 2 weeks) Paresh Fernandez PA-C [Primary Care Provider] - Diet: Heart Healthy and Low Fiber Addtl Attending Provider Instructions: RESUME YOUR USUAL MEDICATIONS EXCEPT FOR LISINOPRIL. YOUR BLOOD PRESSURE IS WITHIN NORMAL RANGE. STOP TAKING LISINOPRIL FOR NOW. CALL YOUR PRIMARY CARE PHYSICIAN OR RETURN TO THE ER IMMEDIATELY IF WITH ABDOMINAL PAIN, NAUSEA/VOMITING, FEVER/CHILLS, COUGH, SPUTUM PRODUCTION, SHORTNESS OF BREATH, LEG SWELLING/REDNESS/PAIN. FOLLOW UP WITH PRIMARY CARE PHYSICIAN IN 1 WEEK. THE CLINIC WILL BE CALLING YOU FOR THE APPOINTMENT SCHEDULE. FOLLOW UP WITH SURGEON DR. RODRIGUEZ IN 2 WEEKS. PLEASE CALL HIS OFFICE FOR AN APPOINTMENT. CONTACT INFORMATION NOTED ABOVE. Pending Studies at Discharge: No Stand-Alone Forms: [employer], Smoking Cessation Medications and DC Order Prescriptions: Continued multivitamin Tablet 1 tab PO DAILY RF: 0 aspirin [Aspir-81] 81 mg Tablet,Delayed Release (Dr/Ec) 81 mg PO DAILY RF: 0 cetirizine [Zyrtec] 10 mg Tablet 10 mg PO DAILY RF: 0 Discontinued lisinopril 10 mg tablet 10 mg PO DAILY RF: 0 Discharge Orders: Discharge Order (Routine); Ordered 09/08/19 Ordered By: Spencer Ansari/Other Patient Handouts: Preventing Deep Vein Thrombosis, Diet Soft Dc Admission Data Admit Date/Time: 09/02/19 23:08 Attending Provider: Spencer Choudhary Admit Provider: Salomon Isidro Primary Care Provider: Paresh Fernandez Other Providers: Christiano Bassett ; Salomon Isidro ; Denver Rodriguez Other Interventions: Discharge Summary Assessment (RN) Last Done: 09/08/19 16:50
--- NOTE | 2019-09-17 11:12 | Coding Query ---
To promote full compliance with coding requirements relating to patient care, provider participation is requested in all cases of numerical control machine operator uncertainty. Please assist us with the question(s) below: Coding Question(s): The diagnosis(es) below was documented in the ER H&P for Pancreatitis and the 09/06/19 Communication Note for the Hypoxic Respiratory Failure, Aspiration Pneumonia and CAP and Sepsis, then subsequently fell off all further documentation. Please indicate if it is still a possible diagnosis or ruled out. Physician's Response(s): POSSIBLE PANCREATITIS (documented on ER - concern for Pancreatitis) ( ) Diagnosed and POA ( ) Diagnosed and not POA xRuled out ( ) Other (please specify) POSSIBLE SEPSIS (documented on 09/06/19 Communication Note) ( ) Diagnosed and POA ( ) Diagnosed and not POA ( x ) Ruled out ( ) Other (please specify) POSSIBLE ASPIRATION PNEUMONIA (documented on 09/06/19 Communication Note) ( ) Diagnosed and POA ( ) Diagnosed and not POA ( x ) Ruled out ( ) Other (please specify) POSSIBLE CAP (documented on 09/06/19 Communication Note) ( ) Diagnosed and POA ( ) Diagnosed and not POA ( x ) Ruled out ( ) Other (please specify) HYPOXEMIC RESPIRATORY FAILURE (documented on 09/06/19 Communication Note) ( ) Diagnosed and POA ( ) Diagnosed and not POA ( x ) Ruled out ( ) Other (please specify) MTDD
== END 2019-09-08 17:55 | disposition home or self-care (01) | DRG 336 ==
LOC: ED 16:23 → 3E 23:08 → SUATTDRO 23:08 → 3E 23:53